=== PATIENT | male | born 1990 | race Caucasian/White ===

== ENCOUNTER → 2016-12-24 | Outpatient (CLI) | payer MEDICARE, MEDICAID ==
[~2016-12-24] MED LIST: BISA10SU4 PR; CIPR500T3 PO; CLAR1TAB2 PO; CRAN200C PO; FISH100049 PO; MACR25CA2 PO; NITR100C37 PO; OXYC-517 PO; PROBCAP4 PO; TRAM50TA2 PO; VITA-112 PO
[2016-12-24 18:02] LABS: INR 1.01
[2016-12-24 18:09] LABS: MEAN CORPUSCULAR HEMOGLOBIN 30.9 pg (27.0-33.0); MEAN CORPUSCULAR HGB CONC 33.9 g/dl (32.0-36.5); MEAN CORPUSCULAR VOLUME 91.1 fl (80.0-96.0); RED CELL DISTRIBUTION WIDTH 12.1 % (11.5-14.5); WHITE BLOOD COUNT 7.2 K/mm3 (4.0-10.0)
[2016-12-24 18:18] LABS: ANION GAP 7 MEQ/L (8-16); BLOOD UREA NITROGEN 12 MG/DL (7-18); CALCIUM LEVEL 9.1 MG/DL (8.5-10.1); CARBON DIOXIDE LEVEL 34 MEQ/L (21-32); CHLORIDE LEVEL 102 MEQ/L (98-107); CREATININE FOR GFR 0.74 MG/DL (0.70-1.30); GLOMERULAR FILTRATION RATE > 60.0 (>60); GLUCOSE, FASTING 72 MG/DL (70-105); POTASSIUM SERUM 4.1 MEQ/L (3.5-5.1); SODIUM LEVEL 143 MEQ/L (136-145)
== END ==
LOC: M SMT 15:25
PROVIDERS: ATTEND Nurse Practitioner Women's Health
DX: Z01.818 Encounter for other preprocedural examination (principal); N31.9 Neuromuscular dysfunction of bladder, unspecified; F17.228 Nicotine dependence, chewing tobacco, with other nicotine-induced disorders; Z79.899 Other long term (current) drug therapy; Z79.891 Long term (current) use of opiate analgesic
CPT/HCPCS: 36415; 80048; 85027; 85610; 85730; 87086; G0463

== ENCOUNTER → 2017-01-01 | Outpatient (REF) | payer MEDICARE, MEDICAID ==
[2017-01-01 18:37] LABS: ALBUMIN 3.9 GM/DL (3.2-5.2); ALBUMIN/GLOBULIN RATIO 1.34 (1.00-1.93); ALKALINE PHOSPHATASE 69 U/L (45-117); ALT/SGPT 25 U/L (12-78); ANION GAP 6 MEQ/L (8-16); AST/SGOT 13 U/L (15-37); BILIRUBIN,TOTAL 0.5 MG/DL (0.2-1.0); BLOOD UREA NITROGEN 10 MG/DL (7-18); CALCIUM LEVEL 8.8 MG/DL (8.5-10.1); CARBON DIOXIDE LEVEL 34 MEQ/L (21-32); CHLORIDE LEVEL 102 MEQ/L (98-107); CHOLESTEROL LEVEL 132 MG/DL (<200); CREATININE FOR GFR 0.81 MG/DL (0.70-1.30); GLOMERULAR FILTRATION RATE > 60.0 (>60); GLUCOSE, FASTING 71 MG/DL (70-105); SODIUM LEVEL 142 MEQ/L (136-145); TOTAL PROTEIN 6.8 GM/DL (6.4-8.2); TRIGLYCERIDES LEVEL 133 MG/DL (<150)
== END ==
LOC: M SFHCPLAZ 16:37
PROVIDERS: ATTEND Family Medicine
DX: B35.1 Tinea unguium (principal); B35.3 Tinea pedis; Z79.891 Long term (current) use of opiate analgesic; Z79.899 Other long term (current) drug therapy
CPT/HCPCS: 36415; 80053; 80061; G0463

== ENCOUNTER 2017-01-19 07:30 | Day surgery (SDC) | payer MEDICARE, MEDICAID ==
[~2017-01-19] VITALS: Ht 177.8 cm; Wt 73.9 kg
[~2017-01-19 07:30] MED LIST changes: +BOTULINUM INJ 100 UNITS (J0585) As Ordered ONE; +BOTULINUM INJ 100 UNITS (J0585) IM ONE; +BOTULINUM INJ 100 UNITS (J0585) INJ ONE; -CIPR500T3 PO; +CIPROFLOXACIN 500 MG TAB PO SCH; +LIDOCAINE 2% INJ 100 MG/5 ML SDV (FOR ANES.) As Ordered ONE; +LR 1,000 ML IV SCH; +MIDAZOLAM INJ 2 MG/2 ML VIAL (J2250) As Ordered ONE; +PROPOFOL 200 MG/20 ML VIAL As Ordered ONE; +fentaNYL 100 MCG/2 ML INJECTION (J3010) As Ordered ONE
[2017-01-19] MEDS ORDERED: GLYCOPYRROLATE INJ 0.2 MG/ML 2 ML VIAL As Ordered ONE (07:45)
[2017-01-19] MEDS ORDERED: CIPR500T3 PO (08:04)
[2017-01-19] MEDS ORDERED: ONDANSETRON 4MG/2ML VIAL (J2405) IV PRN (08:30)
[2017-01-19] MEDS ORDERED: NORCO, ANEXSIA 5/325MG TABLET (HYDROcodone/ACETAMINOPHEN) PO PRN (08:30)
[2017-01-19 09:15] VITALS: BP 125/57
--- NOTE | 2017-01-20 05:10 | RO ---
DATE OF PROCEDURE: 01/19/2017 PREOPERATIVE DIAGNOSIS: Neurogenic bladder. POSTOPERATIVE DIAGNOSIS: Neurogenic bladder. SURGERY PERFORMED: Cystoscopy, plus intravesical Botox injection 300 units. SURGEON: Jerry Herrera MD [employer] PR[employer] UTILITY WORKER: None. ANESTHESIA: General. COMPLICATIONS: None. ESTIMATED BLOOD LOSS: N/A. HISTORY OF PRESENT ILLNESS: This is a 26-year-old male patient with history of neurogenic bladder. He catheterizes every 6 hours. He has urinary incontinence between catheterization. For this reason, he has consented for a cystoscopy, plus Botox injection 300 units. PROCEDURE DESCRIPTION: In a patient in under general anesthesia in supine modified low lithotomy position after prepping and draping the area of concern, which included the entire genitalia and abdomen, we introduced a cystoscope with a 30 degree lens under video endoscopic guidance. The fossa navicularis, penile urethra, bulbar urethra, membranous urethra, and prostatic urethra were totally normal. The bladder had no tumor, no stones, no foreign objects. We could see both ureteral orifices very well. We passed a Laborie endoscopic needle and through this needle we applied 300 units of Botox injection. We applied 1 mL in every puncture of the bladder in the posterior bladder wall, the dome, left lateral wall, right lateral wall, and trigone. We spread the Botox injection 300 units all across the bladder. There were no complications. We took the needle out and we emptied bladder and took the cystoscope out. PLAN: The patient will go home with antibiotic, will take Tylenol for pain. He will followup at [facility] in about 3-4 weeks. STEPHIE
[2017-01-20] MEDS ORDERED: PERCOCET 5MG/325MG TAB As Ordered ONE (13:12)
== END 2017-01-19 15:30 | disposition home or self-care (01) ==
LOC: M SDC 07:30
PROVIDERS: ATTEND Urology
DX: N31.0 Uninhibited neuropathic bladder, not elsewhere classified (principal); R32 Unspecified urinary incontinence; S24.112A Complete lesion at T2-T6 level of thoracic spinal cord, initial encounter; Z99.3 Dependence on wheelchair; Z86.73 Personal history of transient ischemic attack (TIA), and cerebral infarction without residual deficits; Z79.899 Other long term (current) drug therapy; F17.220 Nicotine dependence, chewing tobacco, uncomplicated
CPT/HCPCS: 52287; J0585; J0690; J2250; J3010; L8606

== ENCOUNTER → 2017-05-07 | Outpatient (CLI) | payer MEDICARE, MEDICAID ==
[~2017-05-07] MED LIST changes: +BACT800T5 PO; -BOTULINUM INJ 100 UNITS (J0585) As Ordered ONE; -BOTULINUM INJ 100 UNITS (J0585) IM ONE; -BOTULINUM INJ 100 UNITS (J0585) INJ ONE; +CIPR500T3 PO; -CIPROFLOXACIN 500 MG TAB PO SCH; -LIDOCAINE 2% INJ 100 MG/5 ML SDV (FOR ANES.) As Ordered ONE; -LR 1,000 ML IV SCH; -MIDAZOLAM INJ 2 MG/2 ML VIAL (J2250) As Ordered ONE; -NITR100C37 PO; +NITR100C39 PO; +NITR50CA2 PO; +OXYC20TA2 PO; -PROPOFOL 200 MG/20 ML VIAL As Ordered ONE; -fentaNYL 100 MCG/2 ML INJECTION (J3010) As Ordered ONE
[2017-05-07 17:03] LABS: MEAN CORPUSCULAR HEMOGLOBIN 31.4 pg (27.0-33.0); MEAN CORPUSCULAR VOLUME 92.3 fl (80.0-96.0); RED CELL DISTRIBUTION WIDTH 12.2 % (11.5-14.5); WHITE BLOOD COUNT 8.8 K/mm3 (4.0-10.0)
[2017-05-07 17:14] LABS: INR 1.14
[2017-05-07 17:58] LABS: ANION GAP 5 MEQ/L (8-16); BLOOD UREA NITROGEN 10 MG/DL (7-18); CALCIUM LEVEL 8.9 MG/DL (8.5-10.1); CARBON DIOXIDE LEVEL 33 MEQ/L (21-32); CHLORIDE LEVEL 101 MEQ/L (98-107); CREATININE FOR GFR 0.81 MG/DL (0.70-1.30); GLOMERULAR FILTRATION RATE > 60.0 (>60); GLUCOSE, FASTING 68 MG/DL (70-105); POTASSIUM SERUM 4.3 MEQ/L (3.5-5.1); SODIUM LEVEL 139 MEQ/L (136-145)
== END ==
LOC: M SMT 15:36
PROVIDERS: ATTEND Nurse Practitioner Women's Health
DX: Z01.818 Encounter for other preprocedural examination (principal); N31.9 Neuromuscular dysfunction of bladder, unspecified; Z79.899 Other long term (current) drug therapy
CPT/HCPCS: 36415; 80048; 81001; 85027; 85610; 85730; 87086; G0463

== ENCOUNTER → 2017-06-02 | Day surgery (SDC) | payer MEDICARE, MEDICAID ==
[~2017-06-02] VITALS: Ht 177.8 cm; Wt 77.1 kg
[~2017-06-02] MED LIST changes: +BACTRIM 160MG/800MG DS TAB PO SCH; +BOTULINUM INJ 100 UNITS (J0585) As Ordered ONE; +BOTULINUM INJ 100 UNITS (J0585) XX ONE; +LIDOCAINE 2% INJ 100 MG/5 ML SDV (FOR ANES.) As Ordered ONE; +LR 1,000 ML IV ONE; +LR 1,000 ML IV SCH; +MIDAZOLAM INJ 2 MG/2 ML VIAL (J2250) As Ordered ONE; +ONDANSETRON 4MG/2ML VIAL (J2405) As Ordered ONE; +ONDANSETRON 4MG/2ML VIAL (J2405) IV PRN; +ceFAZolin 2 GM/D5W 50 ML IV BAG (J0690) As Ordered ONE; +dexameTHASONE 4 MG/ML 1ML VIAL (J1100) As Ordered ONE; +ePHEDrine SULFATE 25 MG/5 ML(5MG/ML) SYRINGE As Ordered ONE; +fentaNYL 100 MCG/2 ML INJECTION (J3010) As Ordered ONE; +fentaNYL 100 MCG/2 ML INJECTION (J3010) IV PRN
[2017-06-02 14:30] VITALS: BP 143/86
--- NOTE | 2017-06-03 09:30 | RO ---
DATE OF PROCEDURE: 06/02/2017 PREPROCEDURE DIAGNOSIS: Neurogenic bladder. POSTPROCEDURE DIAGNOSIS: Neurogenic bladder and urge incontinence. FINDINGS: Neurogenic bladder. SURGEON: Jerry Herrera MD CARE TEAM COORDINATOR SCHEDULER: None ANESTHESIA: General. COMPLICATIONS: None. ESTIMATED BLOOD LOSS: N/A. SURGERY PERFORMED: Cystoscopy plus injection of 300 units of Botox into the bladder. HISTORY OF PRESENT ILLNESS: This is a 26-year-old male patient that has a neurogenic bladder and catheterizes intermittently every six hours. Between catheterizations, he has urge incontinence. For this reason, he has been using Botox injections in the bladder. Today, he has consented for cystoscopy, plus 300 units of Botox into the bladder. DESCRIPTION OF PROCEDURE: With the patient under general anesthesia in supine, modified, low lithotomy position, after prepping had draping the area of concern , which included the entire genitalia and abdomen, we started by introducing a cystoscope with a 30 degree lens under videoendoscopic guidance, #21 [place] in diameter. The fossa navicularis, penile urethra, bulbar urethra, membranous urethra and prostatic urethra were completely normal. The bladder had no tumors , no stones, no foreign objects. Both ureteral orifices were seen excreting clear urine. We then proceeded to pass an endoscopic needle and using a 5 mm needle tip, we injected the solution of 10 mL of Botox 100 units. We placed 1 mL in every injection in the posterior wall, by 5 cm from each injection site in the bladder. The posterior wall, dome, right lateral wall. Another 100 units of Botox injection in 10 mL of normal saline was injected at 1 mL every 5 cm in the posterior wall, dome, and left lateral wall. We then proceeded to actually inject another 100 units of Botox injection in 10 mL using 1 mL in every site of injection in the posterior wall and all the spaces that were available between the injection sites, which we did on the right lateral wall, left lateral wall, anterior wall and dome. After this, he received a total of 300 units of Botox injection into the bladder. There was no bleeding. We emptied the bladder and took the cystoscope out. PLAN: The patient will go home with antibiotic, Bactrim double strength, one tablet by mouth twice a day. He will followup at [facility] in about 2 weeks. STEPHIE
== END | disposition home or self-care (01) ==
LOC: M SDC 09:47
PROVIDERS: ATTEND Urology
DX: N31.9 Neuromuscular dysfunction of bladder, unspecified (principal); N39.41 Urge incontinence; G82.20 Paraplegia, unspecified; S24.112S Complete lesion at T2-T6 level of thoracic spinal cord, sequela; I82.4Z9 Acute embolism and thrombosis of unspecified deep veins of unspecified distal lower extremity; M54.2 Cervicalgia; M25.511 Pain in right shoulder; M25.512 Pain in left shoulder; G89.29 Other chronic pain; F17.220 Nicotine dependence, chewing tobacco, uncomplicated; Z79.899 Other long term (current) drug therapy; Z99.3 Dependence on wheelchair
CPT/HCPCS: 52287; J0585; J0690; J1100; J2250; J2405; J3010; L8606

== ENCOUNTER → 2017-09-02 | Outpatient (CLI) | payer MEDICARE, MEDICAID ==
[~2017-09-02] MED LIST changes: -BACTRIM 160MG/800MG DS TAB PO SCH; -BOTULINUM INJ 100 UNITS (J0585) As Ordered ONE; -BOTULINUM INJ 100 UNITS (J0585) XX ONE; -LIDOCAINE 2% INJ 100 MG/5 ML SDV (FOR ANES.) As Ordered ONE; -LR 1,000 ML IV ONE; -LR 1,000 ML IV SCH; -MIDAZOLAM INJ 2 MG/2 ML VIAL (J2250) As Ordered ONE; -ONDANSETRON 4MG/2ML VIAL (J2405) As Ordered ONE; -ONDANSETRON 4MG/2ML VIAL (J2405) IV PRN; -ceFAZolin 2 GM/D5W 50 ML IV BAG (J0690) As Ordered ONE; -dexameTHASONE 4 MG/ML 1ML VIAL (J1100) As Ordered ONE; -ePHEDrine SULFATE 25 MG/5 ML(5MG/ML) SYRINGE As Ordered ONE; -fentaNYL 100 MCG/2 ML INJECTION (J3010) As Ordered ONE; -fentaNYL 100 MCG/2 ML INJECTION (J3010) IV PRN
[2017-09-02 18:33] LABS: ANION GAP 7 MEQ/L (8-16); BLOOD UREA NITROGEN 12 MG/DL (7-18); CARBON DIOXIDE LEVEL 33 MEQ/L (21-32); CHLORIDE LEVEL 101 MEQ/L (98-107); GLOMERULAR FILTRATION RATE > 60.0 (>60); GLUCOSE, FASTING 70 MG/DL (70-105); POTASSIUM SERUM 4.1 MEQ/L (3.5-5.1); SODIUM LEVEL 141 MEQ/L (136-145)
[2017-09-02 18:45] LABS: MEAN CORPUSCULAR HEMOGLOBIN 30.7 pg (27.0-33.0); MEAN CORPUSCULAR HGB CONC 32.9 g/dl (32.0-36.5); MEAN CORPUSCULAR VOLUME 93.1 fl (80.0-96.0); WHITE BLOOD COUNT 7.1 10^3/uL (4.0-10.0)
[2017-09-02 18:55] LABS: INR 1.03
== END ==
LOC: M SMT 15:55
PROVIDERS: ATTEND Nurse Practitioner Women's Health
DX: Z01.818 Encounter for other preprocedural examination (principal); N31.9 Neuromuscular dysfunction of bladder, unspecified; R32 Unspecified urinary incontinence; Z79.891 Long term (current) use of opiate analgesic; Z79.899 Other long term (current) drug therapy
CPT/HCPCS: 36415; 51702; 80048; 81001; 85027; 85610; 85730; 87086; G0463

== ENCOUNTER → 2018-02-11 | Outpatient (REF) | payer MEDICARE, MEDICAID ==
[2018-02-11 13:00] LABS: APPEARANCE, URINE CLEAR (CLEAR); BACTERIA, URINE AUTO NEGATIVE (NEGATIVE); BILIRUBIN, URINE AUTO NEGATIVE (NEGATIVE); BLOOD, URINE BLOOD NEGATIVE (NEGATIVE); COLOR, URINE STRAW (YELLOW); GLUCOSE, URINE (UA) AUTO NEGATIVE (NEGATIVE); KETONE, URINE AUTO NEGATIVE (NEGATIVE); LEUKOCYTE ESTERASE, URINE AUTO NEGATIVE (NEGATIVE); NITRITE, URINE AUTO NEGATIVE (NEGATIVE); PROTEIN, URINE AUTO NEGATIVE (NEGATIVE); RBC, URINE AUTO 1 /HPF (0-3); SPECIFIC GRAVITY URINE AUTO 1.005 (1.002-1.035); SQUAMOUS EPITHELIAL CELL UR AU 0 /HPF (0-6); UROBILINOGEN, URINE AUTO 0.2 mg/dL (0.0-2.0); WBC, URINE AUTO 0 /HPF (0-3)
== END ==
LOC: M SMT 12:21
DX: Z01.818 Encounter for other preprocedural examination (principal); N31.9 Neuromuscular dysfunction of bladder, unspecified; Z79.899 Other long term (current) drug therapy
CPT/HCPCS: 81001

== ENCOUNTER → 2018-02-11 | Outpatient (CLI) | payer MEDICARE, MEDICAID ==
[2018-02-11 12:27] LABS: HEMATOCRIT 41.3 % (42.0-52.0); HEMOGLOBIN 13.5 g/dl (14.0-18.0); MEAN CORPUSCULAR HEMOGLOBIN 30.3 pg (27.0-33.0); MEAN CORPUSCULAR HGB CONC 32.7 g/dl (32.0-36.5); MEAN CORPUSCULAR VOLUME 92.6 fl (80.0-96.0); PLATELET COUNT, AUTOMATED 256 10^3/uL (150-450); RED BLOOD COUNT 4.46 10^6/uL (4.30-6.10); RED CELL DISTRIBUTION WIDTH 12.5 % (11.5-14.5); WHITE BLOOD COUNT 4.9 10^3/uL (4.0-10.0)
[2018-02-11 12:43] LABS: ANION GAP 5 MEQ/L (8-16); BLOOD UREA NITROGEN 8 MG/DL (7-18); CALCIUM LEVEL 8.8 MG/DL (8.5-10.1); CARBON DIOXIDE LEVEL 33 MEQ/L (21-32); CHLORIDE LEVEL 104 MEQ/L (98-107); CREATININE FOR GFR 0.63 MG/DL (0.70-1.30); GLOMERULAR FILTRATION RATE > 60.0 (>60); GLUCOSE, FASTING 78 MG/DL (70-100); POTASSIUM SERUM 4.2 MEQ/L (3.5-5.1); SODIUM LEVEL 142 MEQ/L (136-145)
[2018-02-11 12:48] LABS: INR 1.04; PROTHROMBIN TIME 13.7 SECONDS (12.4-14.5)
[2018-02-11 12:49] LABS: PARTIAL THROMBOPLASTIN TIME 26.6 SECONDS (26.8-37.9)
== END ==
LOC: M SMT 09:18
DX: Z01.818 Encounter for other preprocedural examination (principal); N31.9 Neuromuscular dysfunction of bladder, unspecified
CPT/HCPCS: 80048

== ENCOUNTER 2018-02-22 12:17 | Day surgery (SDC) | payer MEDICARE, MEDICAID ==
[~2018-02-22 12:17] MED LIST changes: -BACT800T5 PO; -BISA10SU4 PR; -CIPR500T3 PO; -CLAR1TAB2 PO; -CRAN200C PO; -FISH100049 PO; +LIDOCAINE 2% INJ 100 MG/5 ML SDV (FOR ANES.) As Ordered; -MACR25CA2 PO; +MIDAZOLAM INJ 2 MG/2 ML VIAL (J2250) As Ordered; -NITR100C39 PO; -NITR50CA2 PO; -OXYC-517 PO; -OXYC20TA2 PO; -PROBCAP4 PO; +PROPOFOL 200 MG/20 ML VIAL As Ordered; -TRAM50TA2 PO; -VITA-112 PO; +fentaNYL 100 MCG/2 ML INJECTION (J3010) As Ordered
[2018-02-22] MEDS: LR 1,000 ML IV (13:19)
[2018-02-22] MEDS ORDERED: ePHEDrine SULFATE 25 MG/5 ML(5MG/ML) SYRINGE As Ordered (14:29)
[2018-02-22] MEDS ORDERED: ONDANSETRON 4MG/2ML VIAL (J2405) As Ordered (14:30)
[2018-02-22] MEDS ORDERED: dexameTHASONE 4 MG/ML 1ML VIAL (J1100) As Ordered (14:30)
[2018-02-22] MEDS: BOTULINUM INJ 100 UNITS (J0585) As Ordered (14:38)
[2018-02-22] MEDS ORDERED: LR 1,000 ML IV (15:15)
== END 2018-02-22 16:05 | disposition home or self-care (01) ==
LOC: M SDC 12:17
DX: N31.9 Neuromuscular dysfunction of bladder, unspecified (principal); R32 Unspecified urinary incontinence; G82.20 Paraplegia, unspecified; Z79.899 Other long term (current) drug therapy; Z99.3 Dependence on wheelchair; F17.220 Nicotine dependence, chewing tobacco, uncomplicated; Z86.718 Personal history of other venous thrombosis and embolism
CPT/HCPCS: 52287

== ENCOUNTER → 2018-03-04 | Outpatient (REF) | payer MEDICARE, MEDICAID ==
[2018-03-10 08:09] LABS: AMPHETAMINE SCREEN, URINE Negative ng/mL (Cutoff=1000); BARBITURATES SCREEN, URINE Negative ng/mL (Cutoff=200); BENZODIAZEPINES, URINE SCREEN Negative ng/mL (Cutoff=200); CANNABINOID SCREEN, URINE Negative ng/mL (Cutoff=20); COCAINE SCREEN, URINE Negative ng/mL (Cutoff=300); METHADONE, URINE SCREEN Negative ng/mL (Cutoff=300); OPIATE SCREEN, URINE Negative ng/mL (Cutoff=300); OXYCODONE URINE Positive (.); OXYCODONE, SCREEN, URINE See Final Results ng/mL (Cutoff=100); OXYCODONE, URINE CONFIRM 1280 ng/mL (Cutoff=100); OXYCODONE/OXYMORPH, URINE Positive (Cutoff=100); OXYMORPHONE, URINE Positive (.); OXYMORPHONE, URINE CONFIRM 1060 ng/mL (Cutoff=100); PCP SCREEN, URINE Negative ng/mL (Cutoff=25); pH, URINE 6.5 (4.5-8.9)
== END ==
LOC: M SFHCPLAZ 17:09
DX: G89.21 Chronic pain due to trauma (principal); Z79.899 Other long term (current) drug therapy
CPT/HCPCS: 80307

== ENCOUNTER 2018-03-30 10:36 | Outpatient (CLI) | payer MEDICARE, MEDICAID ==
[2018-03-30] MEDS: ZOLEDRONIC ACID 5 MG in APPROPRIATE DILUENT 1 EA IV (11:03)
[2018-03-30 11:58] LABS: TOTAL 25(OH) VITAMIN D 37.6 NG/ML (30.0-100.0)
== END 2018-03-30 11:50 | disposition home or self-care (01) ==
LOC: M INFU 10:36
DX: M81.8 Other osteoporosis without current pathological fracture (principal); F32.9 Major depressive disorder, single episode, unspecified; R32 Unspecified urinary incontinence; N20.0 Calculus of kidney; F17.220 Nicotine dependence, chewing tobacco, uncomplicated; Z79.891 Long term (current) use of opiate analgesic; Z79.899 Other long term (current) drug therapy
CPT/HCPCS: J3489

== ENCOUNTER 2018-09-23 06:56 | Day surgery (SDC) | payer MEDICARE, MEDICAID ==
[2018-09-23] MEDS ORDERED: NS 1,000 ML IV (07:30)
[2018-09-23] MEDS ORDERED: PROPOFOL 200 MG/20 ML VIAL As Ordered ×2 (07:46)
[2018-09-23] MEDS ORDERED: LIDOCAINE 2% INJ 100 MG/5 ML SDV (FOR ANES.) As Ordered (07:46)
[2018-09-23] MEDS ORDERED: ePHEDrine SULFATE 25 MG/5 ML(5MG/ML) SYRINGE As Ordered (07:47)
== END 2018-09-23 08:40 | disposition home or self-care (01) ==
LOC: M OPP 06:56
DX: K64.8 Other hemorrhoids (principal); K62.1 Rectal polyp; K92.1 Melena; I95.1 Orthostatic hypotension; N31.9 Neuromuscular dysfunction of bladder, unspecified; G89.29 Other chronic pain; G82.20 Paraplegia, unspecified; Z79.891 Long term (current) use of opiate analgesic; Z79.899 Other long term (current) drug therapy; Z99.3 Dependence on wheelchair; Z86.718 Personal history of other venous thrombosis and embolism; F17.220 Nicotine dependence, chewing tobacco, uncomplicated
CPT/HCPCS: 45380

== ENCOUNTER → 2018-10-28 | Outpatient (REF) | payer MEDICARE, MEDICAID ==
[2018-10-28 14:06] LABS: APPEARANCE, URINE CLEAR (CLEAR); BACTERIA, URINE AUTO NEGATIVE (NEGATIVE); BILIRUBIN, URINE AUTO NEGATIVE (NEGATIVE); BLOOD, URINE BLOOD NEGATIVE (NEGATIVE); COLOR, URINE YELLOW (YELLOW); GLUCOSE, URINE (UA) AUTO NEGATIVE (NEGATIVE); KETONE, URINE AUTO NEGATIVE (NEGATIVE); LEUKOCYTE ESTERASE, URINE AUTO NEGATIVE (NEGATIVE); NITRITE, URINE AUTO NEGATIVE (NEGATIVE); PROTEIN, URINE AUTO NEGATIVE (NEGATIVE); RBC, URINE AUTO 0 /HPF (0-3); SPECIFIC GRAVITY URINE AUTO 1.009 (1.002-1.035); SQUAMOUS EPITHELIAL CELL UR AU 1 /HPF (0-6); UROBILINOGEN, URINE AUTO 0.2 mg/dL (0.0-2.0); WBC, URINE AUTO 1 /HPF (0-3)
== END ==
LOC: M SMT 13:03
DX: N31.9 Neuromuscular dysfunction of bladder, unspecified (principal); R32 Unspecified urinary incontinence
CPT/HCPCS: 81001

== ENCOUNTER → 2018-12-09 | Outpatient (CLI) | payer MEDICARE, MEDICAID ==
[~2018-12-09] MED LIST changes: +BACT800T5 PO; +BISA10SU4 PR; +CIPR500T3 PO; +CLAR1TAB2 PO; +CRAN200C PO; +D-MAPOW4 PO; +FISH100049 PO; +LEVI20TA39 PO; -LIDOCAINE 2% INJ 100 MG/5 ML SDV (FOR ANES.) As Ordered; +MACR25CA2 PO; -MIDAZOLAM INJ 2 MG/2 ML VIAL (J2250) As Ordered; +NITR100C39 PO; +NITR50CA34 PO; +NYST1POW9 TOP; +NYSTOI TOP; +OXYC-517 PO; +OXYC20TA2 PO; +PROBCAP4 PO; -PROPOFOL 200 MG/20 ML VIAL As Ordered; +TRAM50TA2 PO; +VITA-112 PO; -fentaNYL 100 MCG/2 ML INJECTION (J3010) As Ordered
[2018-12-09 17:40] LABS: HEMATOCRIT 46.2 % (42.0-52.0); HEMOGLOBIN 15.1 g/dl (13.5-17.5); MEAN CORPUSCULAR HEMOGLOBIN 30.3 pg (27.0-33.0); MEAN CORPUSCULAR HGB CONC 32.7 g/dl (32.0-36.5); MEAN CORPUSCULAR VOLUME 92.8 fl (80.0-96.0); PLATELET COUNT, AUTOMATED 251 10^3/uL (150-450); RED BLOOD COUNT 4.98 10^6/uL (4.30-6.10); WHITE BLOOD COUNT 6.2 10^3/uL (4.0-10.0)
[2018-12-09 17:42] LABS: BLOOD UREA NITROGEN 10 MG/DL (7-18); CALCIUM LEVEL 9.1 MG/DL (8.5-10.1); CARBON DIOXIDE LEVEL 33 MEQ/L (21-32); CHLORIDE LEVEL 102 MEQ/L (98-107); CREATININE FOR GFR 0.68 MG/DL (0.70-1.30); GLOMERULAR FILTRATION RATE > 60.0 (>60); GLUCOSE, FASTING 119 MG/DL (70-100); POTASSIUM SERUM 4.1 MEQ/L (3.5-5.1); SODIUM LEVEL 141 MEQ/L (136-145)
[2018-12-09 17:50] LABS: INR 1.02; PROTHROMBIN TIME 13.5 SECONDS (12.1-14.4)
[2018-12-09 17:51] LABS: PARTIAL THROMBOPLASTIN TIME 25.9 SECONDS (25.4-37.6)
[2018-12-09 18:00] LABS: APPEARANCE, URINE CLEAR (CLEAR); BACTERIA, URINE AUTO NEGATIVE (NEGATIVE); BILIRUBIN, URINE AUTO NEGATIVE (NEGATIVE); BLOOD, URINE BLOOD NEGATIVE (NEGATIVE); COLOR, URINE STRAW (YELLOW); GLUCOSE, URINE (UA) AUTO NEGATIVE (NEGATIVE); KETONE, URINE AUTO NEGATIVE (NEGATIVE); LEUKOCYTE ESTERASE, URINE AUTO NEGATIVE (NEGATIVE); NITRITE, URINE AUTO NEGATIVE (NEGATIVE); PROTEIN, URINE AUTO NEGATIVE (NEGATIVE); RBC, URINE AUTO 0 /HPF (0-3); SPECIFIC GRAVITY URINE AUTO 1.004 (1.002-1.035); SQUAMOUS EPITHELIAL CELL UR AU 0 /HPF (0-6); UROBILINOGEN, URINE AUTO 0.2 mg/dL (0.0-2.0); WBC, URINE AUTO 1 /HPF (0-3)
== END ==
LOC: M SMT 15:05
PROVIDERS: ATTEND Nurse Practitioner Women's Health
DX: N31.9 Neuromuscular dysfunction of bladder, unspecified (principal); R32 Unspecified urinary incontinence

== ENCOUNTER 2018-12-14 08:45 | Day surgery (SDC) | payer MEDICARE, MEDICAID ==
[~2018-12-14] VITALS: Ht 177.8 cm; Wt 73.9 kg
[~2018-12-14 08:45] MED LIST changes: +LIDOCAINE 1% MDV 20ML VIAL SQ PRN; +LR 1,000 ML IV ONE
[2018-12-14] MEDS ORDERED: dexameTHASONE 4 MG/ML 1ML VIAL (J1100) As Ordered ONE (10:17)
[2018-12-14] MEDS ORDERED: LIDOCAINE 2% INJ 100 MG/5 ML SDV (FOR ANES.) As Ordered ONE (10:17)
[2018-12-14] MEDS ORDERED: PROPOFOL 200 MG/20 ML VIAL As Ordered ONE (10:17)
[2018-12-14] MEDS ORDERED: fentaNYL 100 MCG/2 ML INJECTION (J3010) As Ordered ONE (10:17)
[2018-12-14] MEDS ORDERED: ONDANSETRON 4MG/2ML VIAL (J2405) As Ordered ONE (10:17)
[2018-12-14] MEDS ORDERED: MIDAZOLAM INJ 2 MG/2 ML VIAL (J2250) As Ordered ONE (10:18)
[2018-12-14] MEDS ORDERED: BOTULINUM INJ 100 UNITS (J0585) As Ordered ONE (13:51)
[2018-12-14] MEDS ORDERED: ACETAMINOPHEN TAB 650MG DOSE (2X325MG) PO PRN (16:00)
[2018-12-14] MEDS ORDERED: fentaNYL 100 MCG/2 ML INJECTION (J3010) IV PRN (16:00)
[2018-12-14] MEDS ORDERED: ONDANSETRON 4MG/2ML VIAL (J2405) IV PRN (16:00)
[2018-12-14] MEDS ORDERED: PERCOCET 5MG/325MG TAB PO PRN (16:00)
[2018-12-14] MEDS ORDERED: LR 1,000 ML IV SCH (16:00)
[2018-12-14 16:20] VITALS: BP 116/58
--- NOTE | 2018-12-15 10:42 | RO ---
DATE OF PROCEDURE: 12/14/2018 PREPROCEDURE DIAGNOSIS: Neurogenic bladder, urinary incontinence. POSTPROCEDURE DIAGNOSIS: Neurogenic bladder, urinary incontinence. PROCEDURE: Cystoscopy, bladder Botox injections. SURGEON: Dr. Brian Mccracken MANAGING SUPERVISOR: None. ANESTHESIA: General. OPERATIVE INDICATIONS: This is a 28-year-old male with a neurogenic bladder who has several episodes of urge incontinence a day. He was brought to the operating room today for the above listed procedures. DESCRIPTION OF PROCEDURE: The patient was brought to the operating room where general anesthesia was induced. Prophylactic antibiotics were infused. He was then placed in dorsal lithotomy position and prepped and draped in the usual sterile fashion. A cystoscope was inserted into the urethral meatus and advanced to the bladder. Once inside the bladder, it was examined and no abnormalities were seen. I then proceeded to inject a total of 300 units in 20 mL of injectable saline throughout the bladder. This was done in approximately 30 different locations. I made sure not to inject anywhere close to the ureteral orifices. Once done, the bladder was drained of all fluids and this marked the conclusion of the procedure. The patient was then taken out of dorsal lithotomy position, awakened from anesthesia and transferred to recovery room in stable condition. Estimated blood loss: 5 mL. Complications: None. Specimen: None. Plan: The patient will followup in the clinic in a few weeks for a postoperative visit.
== END 2018-12-14 16:30 | disposition home or self-care (01) ==
LOC: M SDC 08:45
PROVIDERS: ATTEND Urology
DX: N31.9 Neuromuscular dysfunction of bladder, unspecified (principal); R32 Unspecified urinary incontinence; J30.89 Other allergic rhinitis; I95.81 Postprocedural hypotension; M54.2 Cervicalgia; G89.29 Other chronic pain; G82.20 Paraplegia, unspecified; Z79.899 Other long term (current) drug therapy; Z72.0 Tobacco use; Z99.3 Dependence on wheelchair; Z87.81 Personal history of (healed) traumatic fracture
CPT/HCPCS: 52287; J0585; J0690; J1100; J2250; J2405; J3010

== ENCOUNTER → 2019-06-16 | Outpatient (REF) | payer MEDICARE, MEDICAID ==
[~2019-06-16] MED LIST changes: -LIDOCAINE 1% MDV 20ML VIAL SQ PRN; -LR 1,000 ML IV ONE; +MYRB50TA PO; +NITR50CA40 PO
[2019-06-16 13:24] LABS: APPEARANCE, URINE CLEAR (CLEAR); BACTERIA, URINE AUTO NEGATIVE (NEGATIVE); BILIRUBIN, URINE AUTO NEGATIVE (NEGATIVE); BLOOD, URINE BLOOD NEGATIVE (NEGATIVE); COLOR, URINE STRAW (YELLOW); GLUCOSE, URINE (UA) AUTO NEGATIVE (NEGATIVE); KETONE, URINE AUTO NEGATIVE (NEGATIVE); LEUKOCYTE ESTERASE, URINE AUTO TRACE (NEGATIVE); NITRITE, URINE AUTO NEGATIVE (NEGATIVE); PROTEIN, URINE AUTO NEGATIVE (NEGATIVE); RBC, URINE AUTO 1 /HPF (0-3); SPECIFIC GRAVITY URINE AUTO 1.006 (1.002-1.035); SQUAMOUS EPITHELIAL CELL UR AU 0 /HPF (0-6); UROBILINOGEN, URINE AUTO 0.2 mg/dL (0.0-2.0); WBC, URINE AUTO 1 /HPF (0-3)
== END ==
LOC: M SMT 12:50
PROVIDERS: ATTEND Nurse Practitioner Women's Health
DX: Z01.818 Encounter for other preprocedural examination (principal); N31.9 Neuromuscular dysfunction of bladder, unspecified

== ENCOUNTER → 2019-06-16 | Outpatient (CLI) | payer MEDICARE, MEDICAID ==
[2019-06-16 13:26] LABS: HEMATOCRIT 43.8 % (42.0-52.0); HEMOGLOBIN 14.5 g/dl (13.5-17.5); MEAN CORPUSCULAR HEMOGLOBIN 31.2 pg (27.0-33.0); MEAN CORPUSCULAR HGB CONC 33.1 g/dl (32.0-36.5); MEAN CORPUSCULAR VOLUME 94.2 fl (80.0-96.0); PLATELET COUNT, AUTOMATED 224 10^3/uL (150-450); RED BLOOD COUNT 4.65 10^6/uL (4.30-6.10); WHITE BLOOD COUNT 6.7 10^3/uL (4.0-10.0)
[2019-06-16 13:45] LABS: BLOOD UREA NITROGEN 9 MG/DL (7-18); CALCIUM LEVEL 9.1 MG/DL (8.5-10.1); CARBON DIOXIDE LEVEL 32 MEQ/L (21-32); CHLORIDE LEVEL 103 MEQ/L (98-107); CREATININE FOR GFR 0.67 MG/DL (0.70-1.30); GLOMERULAR FILTRATION RATE > 60.0 (>60); GLUCOSE, FASTING 87 MG/DL (70-100); INR 1.01; POTASSIUM SERUM 4.1 MEQ/L (3.5-5.1); SODIUM LEVEL 141 MEQ/L (136-145)
== END ==
LOC: M SMT 10:29
PROVIDERS: ATTEND Nurse Practitioner Women's Health
DX: Z01.818 Encounter for other preprocedural examination (principal); N31.9 Neuromuscular dysfunction of bladder, unspecified

== ENCOUNTER 2019-06-21 06:00 | Day surgery (SDC) | payer MEDICARE, MEDICAID ==
[~2019-06-21] VITALS: Ht 177.8 cm; Wt 73.9 kg
[~2019-06-21 06:00] MED LIST changes: +LIDOCAINE 1% MDV 20ML VIAL SQ PRN
[2019-06-21] MEDS ORDERED: BOTULINUM INJ 100 UNITS (J0585) INJ ONE (06:15)
[2019-06-21] MEDS ORDERED: LR 1,000 ML IV ONE (07:00)
[2019-06-21] MEDS ORDERED: LIDOCAINE 2% INJ 100 MG/5 ML SDV (FOR ANES.) As Ordered ONE (07:00)
[2019-06-21] MEDS ORDERED: PROPOFOL 200 MG/20 ML VIAL As Ordered ONE (07:00)
[2019-06-21] MEDS ORDERED: LevoFLOXacin IV 500 MG in APPROPRIATE DILUENT 1 EA IV ONE (07:00)
[2019-06-21] MEDS ORDERED: dexameTHASONE 4 MG/ML 1ML VIAL (J1100) As Ordered ONE (07:01)
[2019-06-21] MEDS ORDERED: ONDANSETRON 4MG/2ML VIAL (J2405) As Ordered ONE (07:01)
[2019-06-21] MEDS ORDERED: MIDAZOLAM INJ 2 MG/2 ML VIAL (J2250) As Ordered ONE (07:02)
[2019-06-21] MEDS ORDERED: fentaNYL 100 MCG/2 ML INJECTION (J3010) As Ordered ONE (07:02)
[2019-06-21] MEDS ORDERED: BOTULINUM INJ 100 UNITS (J0585) As Ordered ONE (07:16)
--- NOTE | 2019-06-21 08:00 | ROOPDOC ---
[facility] Report Of Operation Report of Operation DATE OF PROCEDURE: 06/21/19 PREPROCEDURE DIAGNOSIS: Neurogenic bladder, urinary incontinence. POSTPROCEDURE DIAGNOSIS: Neurogenic bladder, urinary incontinence. PROCEDURE: Cystoscopy, bladder Botox injections. SURGEON: Dr. Koffi Jimenez BARIATRIC COORDINATOR: None. ANESTHESIA: General. OPERATIVE INDICATIONS: This is a 28-year-old male with a neurogenic bladder who has several episodes of urge incontinence a day. He was brought to the operating room today for the above listed procedures. DESCRIPTION OF PROCEDURE: The patient was brought to the operating room where general anesthesia was induced. Prophylactic antibiotics were infused. He was then placed in dorsal lithotomy position and prepped and draped in the usual sterile fashion. A rigid cystoscope was inserted into the urethral meatus and advanced into the bladder. Once inside the bladder, it was examined and no abnormalities were seen. I then proceeded to inject a total of 300 units in 20 mL of injectable saline throughout the bladder. This was done in approximately 30 different locations. I made sure not to inject close to the ureteral orifices. Once done, the bladder was drained of all fluids and this marked the conclusion of the procedure. The patient was then taken out of dorsal lithotomy position, awakened from anesthesia and transferred to recovery room in stable condition. Estimated blood loss: 5 mL. Complications: None. Specimen: None. Plan: The patient will followup in the clinic in a few weeks for a postoperative visit. KOFFI JIMENEZ MD Jun 21, 2019 08:00
[2019-06-21] MEDS ORDERED: ONDANSETRON 4MG/2ML VIAL (J2405) IV PRN (08:30)
[2019-06-21] MEDS ORDERED: oxyCODONE 5MG TAB PO PRN (08:30)
[2019-06-21] MEDS ORDERED: ACETAMINOPHEN TAB 650MG DOSE (2X325MG) PO PRN (08:30)
[2019-06-21] MEDS ORDERED: fentaNYL 100 MCG/2 ML INJECTION (J3010) IV PRN (08:30)
[2019-06-21] MEDS ORDERED: LR 1,000 ML IV SCH (08:30)
[2019-06-21 08:43] VITALS: BP 122/70
== END 2019-06-21 08:56 | disposition home or self-care (01) ==
LOC: M SDC 06:00
PROVIDERS: ATTEND Urology
DX: N31.9 Neuromuscular dysfunction of bladder, unspecified (principal); N39.41 Urge incontinence; G82.20 Paraplegia, unspecified; F17.220 Nicotine dependence, chewing tobacco, uncomplicated; Z79.899 Other long term (current) drug therapy; Z99.3 Dependence on wheelchair
CPT/HCPCS: 52287; J0585; J1100; J1956; J2250; J2405; J3010

== ENCOUNTER → 2019-06-30 | Outpatient (REF) | payer MEDICARE, MEDICAID ==
[~2019-06-30] MED LIST changes: -LIDOCAINE 1% MDV 20ML VIAL SQ PRN
== END ==
LOC: M SMT 12:53
PROVIDERS: ATTEND Nurse Practitioner Women's Health
DX: N31.9 Neuromuscular dysfunction of bladder, unspecified (principal); N39.0 Urinary tract infection, site not specified
CPT/HCPCS: 51701; 87086; G0463

== ENCOUNTER → 2019-10-25 | Outpatient (CLI) | payer MEDICARE, MEDICAID ==
[~2019-10-25] MED LIST changes: +CVS1CAP2 PO; +FISH1000 PO; +LORA-436 PO; +NITR1CAP27 PO; -NITR50CA40 PO
[2019-10-25 13:22] LABS: HEMATOCRIT 44.8 % (42.0-52.0); HEMOGLOBIN 14.5 g/dl (13.5-17.5); MEAN CORPUSCULAR HEMOGLOBIN 30.7 pg (27.0-33.0); MEAN CORPUSCULAR HGB CONC 32.4 g/dl (32.0-36.5); MEAN CORPUSCULAR VOLUME 94.9 fl (80.0-96.0); PLATELET COUNT, AUTOMATED 244 10^3/uL (150-450); RED BLOOD COUNT 4.72 10^6/uL (4.30-6.10); WHITE BLOOD COUNT 5.7 10^3/uL (4.0-10.0)
[2019-10-25 13:24] LABS: BLOOD UREA NITROGEN 13 MG/DL (7-18); CALCIUM LEVEL 8.8 MG/DL (8.5-10.1); CARBON DIOXIDE LEVEL 33 MEQ/L (21-32); CHLORIDE LEVEL 105 MEQ/L (98-107); CREATININE FOR GFR 0.76 MG/DL (0.70-1.30); GLOMERULAR FILTRATION RATE > 60.0 (>60); GLUCOSE, FASTING 84 MG/DL (70-100); POTASSIUM SERUM 3.9 MEQ/L (3.5-5.1); SODIUM LEVEL 141 MEQ/L (136-145)
[2019-10-25 13:37] LABS: APPEARANCE, URINE CLEAR (CLEAR); BACTERIA, URINE AUTO NEGATIVE (NEGATIVE); BILIRUBIN, URINE AUTO NEGATIVE (NEGATIVE); BLOOD, URINE BLOOD NEGATIVE (NEGATIVE); COLOR, URINE YELLOW (YELLOW); GLUCOSE, URINE (UA) AUTO NEGATIVE (NEGATIVE); KETONE, URINE AUTO NEGATIVE (NEGATIVE); LEUKOCYTE ESTERASE, URINE AUTO 1+ (NEGATIVE); NITRITE, URINE AUTO NEGATIVE (NEGATIVE); PROTEIN, URINE AUTO NEGATIVE (NEGATIVE); RBC, URINE AUTO 0 /HPF (0-3); SPECIFIC GRAVITY URINE AUTO 1.011 (1.002-1.035); SQUAMOUS EPITHELIAL CELL UR AU 0 /HPF (0-6); UROBILINOGEN, URINE AUTO 0.2 mg/dL (0.0-2.0); WBC, URINE AUTO 6 /HPF (0-3)
[2019-10-25 13:48] LABS: INR 1.07; PARTIAL THROMBOPLASTIN TIME 26.1 SECONDS (25.0-38.4); PROTHROMBIN TIME 13.6 SECONDS (11.8-14.0)
== END ==
LOC: M PLALAB 10:52
PROVIDERS: ATTEND Nurse Practitioner Women's Health
DX: Z01.812 Encounter for preprocedural laboratory examination (principal); N31.9 Neuromuscular dysfunction of bladder, unspecified; G89.21 Chronic pain due to trauma; Z79.899 Other long term (current) drug therapy

== ENCOUNTER → 2019-10-25 | Outpatient (CLI) | payer MEDICARE, MEDICAID ==
[2019-10-25 13:36] LABS: ALBUMIN 3.5 GM/DL (3.2-5.2); ALT/SGPT 49 U/L (12-78); BILIRUBIN,TOTAL 0.3 MG/DL (0.2-1.0); BLOOD UREA NITROGEN 13 MG/DL (7-18); CALCIUM LEVEL 8.8 MG/DL (8.5-10.1); CARBON DIOXIDE LEVEL 34 MEQ/L (21-32); CHLORIDE LEVEL 102 MEQ/L (98-107); CHOLESTEROL LEVEL 185 MG/DL (<200); CREATININE FOR GFR 0.78 MG/DL (0.70-1.30); GLOMERULAR FILTRATION RATE > 60.0 (>60); GLUCOSE, FASTING 83 MG/DL (70-100); HDL CHOLESTEROL 50 MG/DL (>40); LDL CHOLESTEROL 106 MG/DL (<100); NON-HDL-C 135 MG/DL; POTASSIUM SERUM 3.8 MEQ/L (3.5-5.1); SODIUM LEVEL 141 MEQ/L (136-145); TOTAL PROTEIN 6.6 GM/DL (6.4-8.2); TRIGLYCERIDES LEVEL 147 MG/DL (<150)
[2019-10-25 13:59] LABS: TOTAL 25(OH) VITAMIN D 30.1 NG/ML (30.0-100.0)
[2019-10-28 00:07] LABS: TESTOSTERONE FREE (DIRECT) 9.7 pg/mL (8.7-25.1)
== END ==
LOC: M PLALAB 10:56
PROVIDERS: ATTEND Family Medicine
DX: M81.8 Other osteoporosis without current pathological fracture (principal); R53.82 Chronic fatigue, unspecified; G89.21 Chronic pain due to trauma; E78.1 Pure hyperglyceridemia; E78.6 Lipoprotein deficiency

== ENCOUNTER 2019-11-02 09:08 | Day surgery (SDC) | payer MEDICARE, MEDICAID ==
[~2019-11-02] VITALS: Ht 177.8 cm; Wt 74.8 kg
[~2019-11-02 09:08] MED LIST changes: +LR 1,000 ML IV ONE; +ceFAZolin SOD 2 GM in IV 1 EA IV ONE
[2019-11-02] MEDS ORDERED: ONDANSETRON 4MG/2ML VIAL (J2405) As Ordered ONE (09:14)
[2019-11-02] MEDS ORDERED: PROPOFOL 200 MG/20 ML VIAL As Ordered ONE (09:14)
[2019-11-02] MEDS ORDERED: dexameTHASONE 4 MG/ML 1ML VIAL (J1100) As Ordered ONE (09:14)
[2019-11-02] MEDS ORDERED: LIDOCAINE 2% INJ 100 MG/5 ML SDV (FOR ANES.) As Ordered ONE (09:14)
[2019-11-02] MEDS ORDERED: PROPOFOL 500 MG/50 ML VIAL As Ordered ONE (09:31)
[2019-11-02] MEDS ORDERED: MIDAZOLAM INJ 2 MG/2 ML VIAL (J2250) As Ordered ONE (09:47)
[2019-11-02] MEDS ORDERED: fentaNYL 100 MCG/2 ML INJECTION (J3010) As Ordered ONE (09:47)
[2019-11-02] MEDS ORDERED: BOTULINUM INJ 100 UNITS (J0585) As Ordered ONE (09:49)
[2019-11-02] MEDS ORDERED: LIDOCAINE 2% 5ML JELLY UROJET As Ordered ONE (09:49)
--- NOTE | 2019-11-02 10:51 | ROOPDOC ---
[facility] Report Of Operation Report of Operation DATE OF PROCEDURE: 11/02/19 PREPROCEDURE DIAGNOSIS: Neurogenic bladder, urinary incontinence. POSTPROCEDURE DIAGNOSIS: Neurogenic bladder, urinary incontinence. PROCEDURE: Cystoscopy, bladder Botox injections. SURGEON: Dr. Koffi Jimenez MOTTLE LAY UP OPERATOR: None. ANESTHESIA: Monitored Anesthesia Care (MAC). OPERATIVE INDICATIONS: This is a 29-year-old male with a neurogenic bladder who has several episodes of urge incontinence a day. He was brought to the operating room today for the above listed procedures. DESCRIPTION OF PROCEDURE: The patient was brought to the operating room where anesthesia was administered. Prophylactic antibiotics were infused. He was then placed in dorsal lithotomy position and prepped and draped in the usual sterile fashion. A rigid cystoscope was inserted into the urethral meatus and advanced into the bladder. Once inside the bladder, it was examined and no abnormalities were seen. I then then injected a total of 300 units in 20 mL of injectable saline throughout the bladder. This was done in approximately 30 different locations. I made sure not to inject close to the ureteral orifices. Once done, the bladder was drained of all fluids and this marked the conclusion of the procedure. The patient was then taken out of dorsal lithotomy position, awakened from anesthesia and transferred to recovery room in stable condition. Estimated blood loss: 5mL. Complications: None. Specimen: None. Plan: The patient will followup in the clinic in a few weeks for a postoperative visit. KOFFI JIMENEZ MD Nov 02, 2019 10:51
[2019-11-02 11:07] VITALS: BP 125/78
== END 2019-11-02 11:07 | disposition home or self-care (01) ==
LOC: M SDC 09:08
PROVIDERS: ATTEND Urology
DX: N31.9 Neuromuscular dysfunction of bladder, unspecified (principal); N39.41 Urge incontinence; G82.20 Paraplegia, unspecified; Z99.3 Dependence on wheelchair; Z79.899 Other long term (current) drug therapy; F17.228 Nicotine dependence, chewing tobacco, with other nicotine-induced disorders
CPT/HCPCS: 52287; J0585; J0690; J1100; J2250; J2405; J3010

== ENCOUNTER 2019-11-15 10:35 | Outpatient (CLI) | payer MEDICARE, MEDICAID ==
[~2019-11-15] VITALS: Ht 177.8 cm; Wt 75.0 kg
[2019-11-15 11:00] VITALS: BP 124/68
[2019-11-15] MEDS ORDERED: ZOLEDRONIC ACID 5 MG in IV 1 EA IV ONE (11:00)
[2019-11-15 12:10] VITALS: BP 120/71
== END 2019-11-15 12:10 | disposition home or self-care (01) ==
LOC: M INFU 10:35
PROVIDERS: ATTEND Family Medicine
DX: M81.8 Other osteoporosis without current pathological fracture (principal); S24.11 Complete lesion of thoracic spinal cord; M54.9 Dorsalgia, unspecified; R32 Unspecified urinary incontinence; N31.0 Uninhibited neuropathic bladder, not elsewhere classified; Z79.899 Other long term (current) drug therapy
CPT/HCPCS: 51702; 72052; 72072; 72110; 87086; 96365; G0463; J3489

== ENCOUNTER → 2019-11-15 | Outpatient (CLI) | payer MEDICARE, MEDICAID ==
[~2019-11-15] MED LIST changes: -LR 1,000 ML IV ONE; -ceFAZolin SOD 2 GM in IV 1 EA IV ONE
--- NOTE | 2019-11-15 16:06 | REPPI ---
Eight views cervical spine, two views thoracic spine and five views lumbar spine: 11/15/2019. Indication: Spine tumor. Comparison: None. Findings: The patient is status post laminectomies and posterior instrument effusion extending from T3-T8. The surgical hardware appears intact. Multiple endovascular coils are noted within the left upper quadrant. Retrievable IVC filter is noted. There is no evidence of acute fracture, subluxation or dislocation. No lytic or blastic lesions of the spine are detected. There is no instability of the cervical spine during dynamic testing. Impression: No acute osseous injury of the cervical, thoracic or lumbar spine. Postoperative sequelae of the thoracic spine. Surgical hardware appears intact. No definite recurrent neoplasm is detected by this technique. Electronically Signed by Carl Abbasi DO 11/15/2019 03:57 P
== END ==
LOC: M PLAIMG 12:32
PROVIDERS: ATTEND Family Medicine
DX: S24.11 Complete lesion of thoracic spinal cord (principal); M54.9 Dorsalgia, unspecified

== ENCOUNTER → 2019-11-15 | Outpatient (REF) | payer MEDICARE, MEDICAID | LOC: M SMT 16:55 | PROVIDERS: ATTEND Nurse Practitioner Women's Health | DX: R32 Unspecified urinary incontinence (principal) ==

== ENCOUNTER → 2019-12-06 | Outpatient (CLI) | payer MEDICARE, MEDICAID ==
[2019-12-06 10:36] LABS: HEMATOCRIT 46.3 % (42.0-52.0); MEAN CORPUSCULAR HEMOGLOBIN 30.3 pg (27.0-33.0); MEAN CORPUSCULAR HGB CONC 32.4 g/dl (32.0-36.5); MEAN CORPUSCULAR VOLUME 93.5 fl (80.0-96.0); PLATELET COUNT, AUTOMATED 259 10^3/uL (150-450); RED BLOOD COUNT 4.95 10^6/uL (4.30-6.10); WHITE BLOOD COUNT 5.5 10^3/uL (4.0-10.0)
[2019-12-06 11:07] LABS: FOLLICLE STIMULATING HORMONE 4.3 mIU/mL (1.4-18.1); FREE T4 1.14 NG/DL (0.76-1.46); LUTEINIZING HORMONE 4.2 mIU/mL (1.5-9.3); PROLACTIN 8.5 NG/ML (2.1-17.7); THYROID STIMULATING HORMONE 1.95 uIU/ML (0.358-3.740)
[2019-12-08 00:07] LABS: TRANSFERRIN 229 mg/dL (200-370)
== END ==
LOC: M PLALAB 08:23
PROVIDERS: ATTEND Student in an Organized Health Care Education/Training Program
DX: R53.83 Other fatigue (principal)

== ENCOUNTER → 2019-12-27 | Outpatient (CLI) | payer MEDICARE, MEDICAID | LOC: M WHC 10:24 | PROVIDERS: ATTEND Family Medicine | DX: M81.8 Other osteoporosis without current pathological fracture (principal) ==

== ENCOUNTER → 2020-05-13 | Outpatient (REF) | payer MEDICARE, MEDICAID ==
[~2020-05-13] MED LIST changes: -LORA-436 PO; +LORA-930 PO
[2020-05-13 11:19] LABS: HEMATOCRIT 50.5 % (42.0-52.0); HEMOGLOBIN 16.8 g/dl (13.5-17.5); MEAN CORPUSCULAR HGB CONC 33.3 g/dl (32.0-36.5); MEAN CORPUSCULAR VOLUME 93.2 fl (80.0-96.0); PLATELET COUNT, AUTOMATED 277 10^3/uL (150-450); RED BLOOD COUNT 5.42 10^6/uL (4.30-6.10); WHITE BLOOD COUNT 6.7 10^3/uL (4.0-10.0)
[2020-05-13 11:24] LABS: ALBUMIN 4.2 GM/DL (3.2-5.2); ALT/SGPT 28 U/L (12-78); BILIRUBIN,TOTAL 0.8 MG/DL (0.2-1.0); BLOOD UREA NITROGEN 12 MG/DL (7-18); CALCIUM LEVEL 9.4 MG/DL (8.5-10.1); CARBON DIOXIDE LEVEL 35 MEQ/L (21-32); CHLORIDE LEVEL 102 MEQ/L (98-107); CHOLESTEROL LEVEL 181 MG/DL (<200); CHOLESTEROL RISK RATIO 4.113 (<5); CREATININE FOR GFR 0.78 MG/DL (0.70-1.30); GLOMERULAR FILTRATION RATE > 60.0 (>60); GLUCOSE, FASTING 79 MG/DL (70-100); HDL CHOLESTEROL 44 MG/DL (>40); LDL CHOLESTEROL 121 MG/DL (<100); NON-HDL-C 137 MG/DL; POTASSIUM SERUM 4.2 MEQ/L (3.5-5.1); SODIUM LEVEL 138 MEQ/L (136-145); TOTAL PROTEIN 7.4 GM/DL (6.4-8.2); TRIGLYCERIDES LEVEL 79 MG/DL (<150)
[2020-05-15 04:07] LABS: PSA TOTAL 1.1 ng/mL (0.0-4.0)
== END ==
LOC: M SFHCPLAZ 08:22
PROVIDERS: ATTEND Family Medicine
DX: E29.1 Testicular hypofunction (principal); M81.8 Other osteoporosis without current pathological fracture; N31.0 Uninhibited neuropathic bladder, not elsewhere classified; R79.89 Other specified abnormal findings of blood chemistry

== ENCOUNTER → 2020-05-27 | Outpatient (CLI) | payer MEDICARE, MEDICAID ==
[~2020-05-27] MED LIST changes: +LORA-436 PO; -LORA-930 PO
[2020-05-28 19:08] LABS: TESTOSTERONE FREE (DIRECT) 8.4 pg/mL (8.7-25.1)
== END ==
LOC: M PLALAB 08:09
PROVIDERS: ATTEND Family Medicine
DX: E29.1 Testicular hypofunction (principal)

== ENCOUNTER → 2020-08-23 | Outpatient (CLI) | payer MEDICARE, MEDICAID ==
--- NOTE | 2020-09-01 18:20 | SLEEPHOME ---
DATE: 08/23/2020 ORDERED BY: Dr. Sewell Diagnostic home sleep testing was performed due to concern for the obstructive sleep apnea syndrome. For testing, a nocturnal T3 respiratory monitoring device was used. Continuous record was made of pulse, oxygen saturation, air flow, chest and abdominal strain, and body position. Seven hours and 57 minutes of data were reviewed. There was 5 hours and 3 minutes marked as time in bed. During the interval marked time in bed, there were 129 respiratory events identified of 10 seconds in duration or greater for a respiratory disturbance index of 25. The events were obstructive, mixed and central. In total 92 of the 129 respiratory events were central. Baseline pulse rate was 63 beats per minute. Pulse rate ranged 37 to 186. Baseline saturation was 95%. Saturations fell to 91%. IMPRESSION: Abnormal diagnostic home sleep test with obstructive and central respiratory patterning. Considerations would be obstructive sleep apnea syndrome versus central events due to pain medications. RECOMMENDATION: If obstructive sleep apnea syndrome is of concern, a referral for a formal sleep evaluation may be prudent. STEPHIE
== END ==
LOC: M SLEEP HO 10:01
PROVIDERS: ATTEND Family Medicine
DX: G47.9 Sleep disorder, unspecified (principal); Z79.891 Long term (current) use of opiate analgesic; G89.29 Other chronic pain
CPT/HCPCS: G0399 ×2

== ENCOUNTER → 2020-10-25 | Outpatient (CLI) | payer MEDICARE, MEDICAID ==
--- NOTE | 2020-10-30 16:38 | SLEEP ---
[facility] NOCTURNAL POLYSOMNOGRAPHY DATE: 10/25/2020 ORDERED BY: Dr. Foster Nocturnal polysomnography was performed for evaluation of sleep physiology in this patient with suspected obstructive sleep apnea syndrome based on clinical grounds, supported by home testing, reviewing a respiratory event index of 25. There was 8 hours and 8 minutes of data reviewed. There was 446.5 minutes of sleep identified. Sleep latency was normal at 6 minutes. REM sleep was delayed at 140 minutes. Sleep architecture showed poor progression with some fragmentation. There were three REM cycles appreciated. Overall sleep efficiency was 92.7%. The electrocardiogram showed a sinus rhythm at baseline with an average heart rate of 60 beats per minute. EEG showed normal waveforms for wake and sleep. There were 222 respiratory events identified of 10 seconds in duration or greater for an apnea-hypopnea index of 29.8. The events were both obstructive and central. There were 138 central apneas seen, 14 mixed apneas. Events were not exclusive to sleep stage, were more frequent but not exclusive to the supine posture. Arousals from respiratory events occurred 11.8 times per hour, and oxygen desaturations were seen below 90%. There was some occasional activity in the limb leads, and snoring was noted throughout. IMPRESSION: Complex sleep apnea syndrome (G47.31, G47.33) Apnea-hypopnea index of 29.8. RECOMMENDATION: The patient should be encouraged to return to the sleep disorder center for pressure therapy. Given the occurrence of central events, a bilevel device and backup rate may be needed. In the interim, alcohol and sedative avoidance should be practiced and caution exercised during the operation of motor vehicles.
== END ==
LOC: M SLEEP 20:00
PROVIDERS: ATTEND Internal Medicine Pulmonary Disease
DX: G47.33 Obstructive sleep apnea (adult) (pediatric) (principal); G47.31 Primary central sleep apnea

== ENCOUNTER → 2020-12-11 | Outpatient (REF) | payer MEDICARE, MEDICAID ==
[~2020-12-11] MED LIST changes: -LORA-436 PO; +LORA-930 PO
[2020-12-11 14:02] LABS: HEMATOCRIT 52.2 % (42.0-52.0); HEMOGLOBIN 16.8 g/dl (13.5-17.5); MEAN CORPUSCULAR HEMOGLOBIN 31.2 pg (27.0-33.0); MEAN CORPUSCULAR HGB CONC 32.2 g/dl (32.0-36.5); MEAN CORPUSCULAR VOLUME 96.8 fl (80.0-96.0); PLATELET COUNT, AUTOMATED 256 10^3/uL (150-450); RED BLOOD COUNT 5.39 10^6/uL (4.30-6.10); WHITE BLOOD COUNT 7.4 10^3/uL (4.0-10.0)
[2020-12-12 20:10] LABS: TESTOSTERONE FREE (DIRECT) 27.4 pg/mL (8.7-25.1)
== END ==
LOC: M PLALAB 10:19
PROVIDERS: ATTEND Family Medicine
DX: R79.89 Other specified abnormal findings of blood chemistry (principal)

== ENCOUNTER → 2021-04-15 | Outpatient (CLI) | payer MEDICARE, MEDICAID ==
--- NOTE | 2021-04-16 13:46 | SLEEPCENT ---
NOCTURNAL POLYSOMNOGRAPHY CPAP TITRATION DATE: 04/15/2021 ORDERED BY: Chuy Foster M.D. Nocturnal polysomnography was performed for the titration of pressure therapy in this patient with obstructive sleep apnea syndrome with apnea-hypopnea index of 29.8. For testing a ResMed F30 full face mask of medium size was used, 4 cm of water pressure were applied to the circuit, and the lights were extinguished. 7 hours and 4 minutes of data were reviewed. There were 380.5 minutes of sleep identified. Sleep latency was mildly prolonged at 14 minutes. REM latency was short at 53 minutes. Sleep architecture was good with four REM cycles. Mild fragmentation was seen early in the study. Overall sleep efficiency was 90.7%. The patient's electrocardiogram showed a sinus rhythm with an average heart rate of 76 beats per minute. EEG showed normal waveforms for wake and sleep. Respiratory events were fully palliated with CPAP at a pressure of +10 and remaining measures of sleep physiology were normal. IMPRESSION: Obstructive sleep apnea syndrome (G47.33). RECOMMENDATION: Nightly use of pressure therapy 10 cm of water.
== END ==
LOC: M SLEEP 20:00
PROVIDERS: ATTEND Internal Medicine Pulmonary Disease
DX: G47.33 Obstructive sleep apnea (adult) (pediatric) (principal)

== ENCOUNTER → 2021-05-02 | Outpatient (REF) | payer MEDICARE, MEDICAID ==
[2021-05-02 10:20] LABS: HEMATOCRIT 51.2 % (42.0-52.0); HEMOGLOBIN 16.9 g/dl (13.5-17.5); MEAN CORPUSCULAR HEMOGLOBIN 31.6 pg (27.0-33.0); MEAN CORPUSCULAR VOLUME 95.7 fl (80.0-96.0); PLATELET COUNT, AUTOMATED 253 10^3/uL (150-450); RED BLOOD COUNT 5.35 10^6/uL (4.30-6.10); WHITE BLOOD COUNT 7.5 10^3/uL (4.0-10.0)
[2021-05-02 10:41] LABS: ALT/SGPT 32 U/L (12-78); BILIRUBIN,TOTAL 0.6 MG/DL (0.2-1.0); BLOOD UREA NITROGEN 8 MG/DL (7-18); CALCIUM LEVEL 9.3 MG/DL (8.5-10.1); CARBON DIOXIDE LEVEL 31 MEQ/L (21-32); CHLORIDE LEVEL 100 MEQ/L (98-107); CHOLESTEROL LEVEL 155 MG/DL (<200); CHOLESTEROL RISK RATIO 3.604 (<5); CREATININE FOR GFR 0.85 MG/DL (0.70-1.30); GLOMERULAR FILTRATION RATE > 60.0 (>60); GLUCOSE, FASTING 94 MG/DL (70-100); HDL CHOLESTEROL 43 MG/DL (>40); LDL CHOLESTEROL 85 MG/DL (<100); NON-HDL-C 112 MG/DL; POTASSIUM SERUM 4.2 MEQ/L (3.5-5.1); SODIUM LEVEL 138 MEQ/L (136-145); TOTAL PROTEIN 7.3 GM/DL (6.4-8.2); TRIGLYCERIDES LEVEL 133 MG/DL (<150)
[2021-05-03 10:08] LABS: TESTOSTERONE FREE (DIRECT) 27.6 pg/mL (8.7-25.1)
== END ==
LOC: M PLALAB 08:37
PROVIDERS: ATTEND Family Medicine
DX: G47.31 Primary central sleep apnea (principal); E29.1 Testicular hypofunction; E78.1 Pure hyperglyceridemia; M81.8 Other osteoporosis without current pathological fracture; E78.6 Lipoprotein deficiency

== ENCOUNTER → 2021-05-16 | Outpatient (REF) | payer MEDICARE, MEDICAID | LOC: M SFHCPLAZ 10:28 | PROVIDERS: ATTEND Family Medicine | DX: G89.21 Chronic pain due to trauma (principal) ==

== ENCOUNTER → 2021-05-21 | Outpatient (REF) | payer MEDICARE, MEDICAID ==
[2021-05-21 18:30] LABS: APPEARANCE, URINE CLEAR (CLEAR); BACTERIA, URINE AUTO NEGATIVE (NEGATIVE); BILIRUBIN, URINE AUTO NEGATIVE (NEGATIVE); BLOOD, URINE BLOOD 1+ (NEGATIVE); COLOR, URINE YELLOW (YELLOW); GLUCOSE, URINE (UA) AUTO NEGATIVE (NEGATIVE); KETONE, URINE AUTO NEGATIVE (NEGATIVE); LEUKOCYTE ESTERASE, URINE AUTO NEGATIVE (NEGATIVE); MUCUS, URINE SMALL (NEGATIVE); NITRITE, URINE AUTO NEGATIVE (NEGATIVE); PROTEIN, URINE AUTO NEGATIVE (NEGATIVE); RBC, URINE AUTO 3 /HPF (0-3); SPECIFIC GRAVITY URINE AUTO 1.009 (1.002-1.035); SQUAMOUS EPITHELIAL CELL UR AU 0 /HPF (0-6); UROBILINOGEN, URINE AUTO 0.2 mg/dL (0.0-2.0); WBC, URINE AUTO 1 /HPF (0-3)
== END ==
LOC: M SMT 16:50
PROVIDERS: ATTEND Nurse Practitioner Women's Health
DX: N31.9 Neuromuscular dysfunction of bladder, unspecified (principal); Z79.899 Other long term (current) drug therapy
CPT/HCPCS: 51702; 81001; 87086; G0463

== ENCOUNTER → 2022-06-17 | Outpatient (CLI) | payer MEDICARE, MEDICAID ==
[2022-06-17 10:50] LABS: HEMATOCRIT 50.3 % (42.0-52.0); HEMOGLOBIN 16.4 g/dl (13.5-17.5); MEAN CORPUSCULAR HEMOGLOBIN 31.1 pg (27.0-33.0); MEAN CORPUSCULAR HGB CONC 32.6 g/dl (32.0-36.5); MEAN CORPUSCULAR VOLUME 95.4 fl (80.0-96.0); PLATELET COUNT, AUTOMATED 244 10^3/uL (150-450); RED BLOOD COUNT 5.27 10^6/uL (4.30-6.10)
[2022-06-17 11:07] LABS: ALBUMIN 4.1 GM/DL (3.2-5.2); ALT/SGPT 35 U/L (12-78); BILIRUBIN,TOTAL 0.8 MG/DL (0.2-1.0); BLOOD UREA NITROGEN 9 MG/DL (7-18); CALCIUM LEVEL 9.3 MG/DL (8.5-10.1); CARBON DIOXIDE LEVEL 33 MEQ/L (21-32); CHLORIDE LEVEL 105 MEQ/L (98-107); CHOLESTEROL LEVEL 194 MG/DL (<200); CHOLESTEROL RISK RATIO 4.974 (<5); CREATININE FOR GFR 0.81 MG/DL (0.70-1.30); GLOMERULAR FILTRATION RATE > 60.0 (>60); GLUCOSE, FASTING 82 MG/DL (70-100); HDL CHOLESTEROL 39 MG/DL (>40); LDL CHOLESTEROL 130 MG/DL (<100); NON-HDL-C 155 MG/DL; POTASSIUM SERUM 4.2 MEQ/L (3.5-5.1); SODIUM LEVEL 140 MEQ/L (136-145); TOTAL PROTEIN 7.4 GM/DL (6.4-8.2); TRIGLYCERIDES LEVEL 124 MG/DL (<150)
[2022-06-17 11:15] LABS: HEMOGLOBIN A1c 4.9 %
[2022-06-17 11:39] LABS: TOTAL 25(OH) VITAMIN D 54.8 NG/ML (30.0-100.0)
== END ==
LOC: M PLALAB 08:20
PROVIDERS: ATTEND Family Medicine
DX: G89.21 Chronic pain due to trauma (principal); M81.8 Other osteoporosis without current pathological fracture; E78.1 Pure hyperglyceridemia; E78.6 Lipoprotein deficiency; G47.31 Primary central sleep apnea; Z13.1 Encounter for screening for diabetes mellitus; Z79.899 Other long term (current) drug therapy

== ENCOUNTER → 2022-06-17 | Outpatient (CLI) | payer MEDICARE, MEDICAID ==
[2022-06-18 18:11] LABS: TESTOSTERONE FREE (DIRECT) 11.8 pg/mL (8.7-25.1)
== END ==
LOC: M LAB 09:58
PROVIDERS: ATTEND Family Medicine
DX: E29.1 Testicular hypofunction (principal)

== ENCOUNTER → 2022-07-02 | Outpatient (REF) | payer MEDICARE, MEDICAID | LOC: M SFHCPLAZ 10:46 | PROVIDERS: ATTEND Family Medicine | DX: G89.21 Chronic pain due to trauma (principal); Z79.899 Other long term (current) drug therapy ==

== ENCOUNTER → 2023-05-10 | Outpatient (CLI) | payer MEDICARE, MEDICAID ==
[~2023-05-10] MED LIST changes: +MORP1TAB21 PO; +NYST100085 TOP; -NYSTOI TOP; +OXYC10TA12 PO; +TEST200I14
[2023-05-10 16:11] LABS: HEMATOCRIT 49.7 % (42.0-52.0); HEMOGLOBIN 16.1 g/dl (13.5-17.5); MEAN CORPUSCULAR HEMOGLOBIN 30.7 pg (27.0-33.0); MEAN CORPUSCULAR HGB CONC 32.4 g/dl (32.0-36.5); MEAN CORPUSCULAR VOLUME 94.7 fl (80.0-96.0); PLATELET COUNT, AUTOMATED 269 10^3/uL (150-450); RED BLOOD COUNT 5.25 10^6/uL (4.30-6.10); WHITE BLOOD COUNT 8.4 10^3/uL (4.0-10.0)
[2023-05-10 16:44] LABS: BLOOD UREA NITROGEN 11 MG/DL (9-23); CALCIUM LEVEL 8.9 MG/DL (8.5-10.1); CARBON DIOXIDE LEVEL 33 MMOL/L (20-31); CHLORIDE LEVEL 100 MMOL/L (98-107); CREATININE FOR GFR 0.89 MG/DL (0.70-1.30); GLOMERULAR FILTRATION RATE > 60.0 (>60); GLUCOSE, FASTING 89 MG/DL (60-100); POTASSIUM SERUM 4.5 MMOL/L (3.5-5.1); SODIUM LEVEL 138 MMOL/L (136-145)
[2023-05-10 18:23] LABS: APPEARANCE, URINE CLEAR (CLEAR); BACTERIA, URINE AUTO NEGATIVE (NEGATIVE); BILIRUBIN, URINE AUTO NEGATIVE (NEGATIVE); BLOOD, URINE BLOOD 1+ (NEGATIVE); COLOR, URINE STRAW (YELLOW); GLUCOSE, URINE (UA) AUTO NEGATIVE (NEGATIVE); KETONE, URINE AUTO NEGATIVE (NEGATIVE); LEUKOCYTE ESTERASE, URINE AUTO NEGATIVE (NEGATIVE); NITRITE, URINE AUTO NEGATIVE (NEGATIVE); PROTEIN, URINE AUTO NEGATIVE (NEGATIVE); RBC, URINE AUTO 0 /HPF (0-3); SPECIFIC GRAVITY URINE AUTO 1.006 (1.002-1.035); SQUAMOUS EPITHELIAL CELL UR AU 0 /HPF (0-6); UROBILINOGEN, URINE AUTO 0.2 mg/dL (0.0-2.0); WBC, URINE AUTO 0 /HPF (0-3)
== END ==
LOC: M PLALAB 13:55
PROVIDERS: ATTEND Physician Assistant
DX: Z01.818 Encounter for other preprocedural examination (principal); R32 Unspecified urinary incontinence

== ENCOUNTER 2023-05-19 11:31 | Day surgery (SDC) | payer MEDICARE, MEDICAID ==
[~2023-05-19] VITALS: Ht 172.7 cm; Wt 82.1 kg
[~2023-05-19 11:31] MED LIST changes: +ceFAZolin SOD 2 GM in IV 1 EA IV ONE
[2023-05-19] MEDS ORDERED: ACETAMINOPHEN 1000MG 100ML IV BAG As Ordered ONE (12:54)
[2023-05-19] MEDS ORDERED: LIDOCAINE 2% 100MG/5ML SDV (FOR ANES.) As Ordered ONE (12:54)
[2023-05-19] MEDS ORDERED: propofoL 200 MG/20 ML VIAL As Ordered ONE (12:55)
[2023-05-19] MEDS ORDERED: BOTOX THERAPEUTIC 100 UNIT VIAL As Ordered ONE (13:06)
[2023-05-19] MEDS ORDERED: LIDOCAINE 2% 5ML JELLY UROJET As Ordered ONE (13:07)
[2023-05-19] MEDS ORDERED: fentaNYL 100 MCG/2 ML INJECTION As Ordered ONE (13:33)
[2023-05-19 14:40] VITALS: BP 130/76; TEMP 98.8; O2SAT 98
[2023-05-20] MEDS ORDERED: ONDANSETRON 4MG 2ML VIAL As Ordered ONE (10:27)
[2023-05-20] MEDS ORDERED: LIDOCAINE 2% 100MG/5ML SDV (FOR ANES.) As Ordered ONE (10:27)
[2023-05-20] MEDS ORDERED: propofoL 200 MG/20 ML VIAL As Ordered ONE (10:27)
== END 2023-05-19 14:50 | disposition home or self-care (01) ==
LOC: M SDC 11:31
PROVIDERS: ATTEND Urology
DX: N31.9 Neuromuscular dysfunction of bladder, unspecified (principal); N39.41 Urge incontinence; G82.20 Paraplegia, unspecified; Z79.899 Other long term (current) drug therapy; G47.33 Obstructive sleep apnea (adult) (pediatric); Z86.73 Personal history of transient ischemic attack (TIA), and cerebral infarction without residual deficits
CPT/HCPCS: 52287; A4215; J0131; J0585; J0690; J3010

== ENCOUNTER → 2023-06-25 | Outpatient (CLI) | payer MEDICARE, MEDICAID ==
[~2023-06-25] MED LIST changes: -ceFAZolin SOD 2 GM in IV 1 EA IV ONE
[2023-06-25 14:28] LABS: HEMATOCRIT 51.8 % (42.0-52.0); MEAN CORPUSCULAR HEMOGLOBIN 30.2 pg (27.0-33.0); MEAN CORPUSCULAR HGB CONC 32.8 g/dl (32.0-36.5); MEAN CORPUSCULAR VOLUME 92.2 fl (80.0-96.0); PLATELET COUNT, AUTOMATED 266 10^3/uL (150-450); RED BLOOD COUNT 5.62 10^6/uL (4.30-6.10); WHITE BLOOD COUNT 6.7 10^3/uL (4.0-10.0)
[2023-06-25 14:45] LABS: ALBUMIN 4.2 G/DL (3.2-5.2); ALKALINE PHOSPHATASE 73 U/L (46-116); ALT/SGPT 39 U/L (7.0-40); AST/SGOT 15 U/L (<34); BLOOD UREA NITROGEN 10 MG/DL (9-23); CALCIUM LEVEL 9.2 MG/DL (8.5-10.1); CARBON DIOXIDE LEVEL 33 MMOL/L (20-31); CHLORIDE LEVEL 98 MMOL/L (98-107); CHOLESTEROL LEVEL 185 MG/DL (<200); CHOLESTEROL RISK RATIO 5.31 (<5); CREATININE FOR GFR 0.85 MG/DL (0.70-1.30); GLOMERULAR FILTRATION RATE > 60.0 (>60); GLUCOSE, FASTING 74 MG/DL (60-100); HDL CHOLESTEROL 34.8 MG/DL (>40); LDL CHOLESTEROL 121.8 MG/DL (<100); NON-HDL-C 150.2 MG/DL; POTASSIUM SERUM 4.1 MMOL/L (3.5-5.1); SODIUM LEVEL 137 MMOL/L (136-145); TOTAL 25(OH) VITAMIN D 66.8 NG/ML (20.0-100.0); TOTAL PROTEIN 7.1 G/DL (5.7-8.2); TRIGLYCERIDES LEVEL 142 MG/DL (<150)
[2023-06-28 19:12] LABS: TESTOSTERONE FREE (DIRECT) 19.5 pg/mL (8.7-25.1)
== END ==
LOC: M PLALAB 10:16
PROVIDERS: ATTEND Family Medicine
DX: M81.0 Age-related osteoporosis without current pathological fracture (principal); E78.00 Pure hypercholesterolemia, unspecified

== ENCOUNTER → 2023-07-02 | Outpatient (REF) | payer MEDICARE, MEDICAID | LOC: M SFHCPLAZ 17:05 | PROVIDERS: ATTEND Family Medicine | DX: N31.9 Neuromuscular dysfunction of bladder, unspecified (principal); Z79.899 Other long term (current) drug therapy ==

== ENCOUNTER → 2023-10-11 | Outpatient (CLI) | payer MEDICARE, MEDICAID ==
[2023-10-11 11:21] LABS: ALBUMIN 3.7 G/DL (3.2-5.2); ALKALINE PHOSPHATASE 61 U/L (46-116); ALT/SGPT 41 U/L (7.0-40); AST/SGOT 19 U/L (<34); BILIRUBIN,TOTAL 0.8 MG/DL (0.3-1.2); BLOOD UREA NITROGEN 11 MG/DL (9-23); CALCIUM LEVEL 8.9 MG/DL (8.5-10.1); CARBON DIOXIDE LEVEL 32 MMOL/L (20-31); CHLORIDE LEVEL 104 MMOL/L (98-107); CHOLESTEROL LEVEL 85 MG/DL (<200); CREATININE FOR GFR 0.84 MG/DL (0.70-1.30); GLOMERULAR FILTRATION RATE > 60.0 (>60); GLUCOSE, FASTING 85 MG/DL (60-100); HDL CHOLESTEROL 30.3 MG/DL (>40); LDL CHOLESTEROL 37.7 MG/DL (<100); NON-HDL-C 54.7 MG/DL; POTASSIUM SERUM 4.4 MMOL/L (3.5-5.1); SODIUM LEVEL 144 MMOL/L (136-145); TOTAL PROTEIN 6.5 G/DL (5.7-8.2); TRIGLYCERIDES LEVEL 85 MG/DL (<150)
== END ==
LOC: M PLALAB 07:55
PROVIDERS: ATTEND Family Medicine
DX: E78.2 Mixed hyperlipidemia (principal)

== ENCOUNTER 2023-10-20 11:50 | Outpatient (CLI) | payer MEDICARE, MEDICAID ==
[~2023-10-20] VITALS: Ht 177.8 cm; Wt 83.0 kg
[2023-10-20 11:50] VITALS: BP 96/52; O2SAT 98
[2023-10-20] MEDS ORDERED: ZOLEDRONIC ACID 5 MG in IV 1 EA IV ONE (12:00)
[2023-10-20] MEDS ORDERED: NEUR100C PO (12:05)
[2023-10-20 12:34] VITALS: BP 105/53; O2SAT 95
== END 2023-10-20 12:35 ==
LOC: M INFU 11:50
PROVIDERS: ATTEND Family Medicine
DX: M81.8 Other osteoporosis without current pathological fracture (principal)
CPT/HCPCS: 96365; J3489

== ENCOUNTER → 2023-11-10 | Outpatient (CLI) | payer MEDICARE, MEDICAID ==
[~2023-11-10] MED LIST changes: +NEUR100C PO
[2023-11-10 16:05] LABS: APPEARANCE, URINE CLEAR (CLEAR); BACTERIA, URINE AUTO 1+ (NEGATIVE); BILIRUBIN, URINE AUTO NEGATIVE (NEGATIVE); BLOOD, URINE BLOOD NEGATIVE (NEGATIVE); COLOR, URINE YELLOW (YELLOW); GLUCOSE, URINE (UA) AUTO NEGATIVE (NEGATIVE); KETONE, URINE AUTO NEGATIVE (NEGATIVE); LEUKOCYTE ESTERASE, URINE AUTO 1+ (NEGATIVE); NITRITE, URINE AUTO NEGATIVE (NEGATIVE); PROTEIN, URINE AUTO NEGATIVE (NEGATIVE); RBC, URINE AUTO 1 /HPF (0-3); SPECIFIC GRAVITY URINE AUTO 1.009 (1.002-1.035); SQUAMOUS EPITHELIAL CELL UR AU 0 /HPF (0-6); UROBILINOGEN, URINE AUTO 0.2 mg/dL (0.0-2.0); WBC, URINE AUTO 9 /HPF (0-3)
[2023-11-10 16:24] LABS: HEMATOCRIT 53.3 % (42.0-52.0); HEMOGLOBIN 17.4 g/dl (13.5-17.5); MEAN CORPUSCULAR HGB CONC 32.6 g/dl (32.0-36.5); MEAN CORPUSCULAR VOLUME 94.8 fl (80.0-96.0); PLATELET COUNT, AUTOMATED 271 10^3/uL (150-450); RED BLOOD COUNT 5.62 10^6/uL (4.30-6.10); WHITE BLOOD COUNT 9.4 10^3/uL (4.0-10.0)
[2023-11-10 16:49] LABS: BLOOD UREA NITROGEN 8 MG/DL (9-23); CALCIUM LEVEL 9.2 MG/DL (8.5-10.1); CARBON DIOXIDE LEVEL 33 MMOL/L (20-31); CHLORIDE LEVEL 102 MMOL/L (98-107); CREATININE FOR GFR 0.87 MG/DL (0.70-1.30); GLOMERULAR FILTRATION RATE > 60.0 (>60); GLUCOSE, FASTING 121 MG/DL (60-100); POTASSIUM SERUM 4.6 MMOL/L (3.5-5.1); SODIUM LEVEL 139 MMOL/L (136-145)
== END ==
LOC: M PLALAB 12:10
PROVIDERS: ATTEND Physician Assistant
DX: Z01.818 Encounter for other preprocedural examination (principal); N31.9 Neuromuscular dysfunction of bladder, unspecified; Z79.899 Other long term (current) drug therapy

== ENCOUNTER 2023-12-01 09:23 | Day surgery (SDC) | payer MEDICARE, MEDICAID ==
[~2023-12-01] VITALS: Ht 177.8 cm; Wt 83.0 kg
[~2023-12-01 09:23] MED LIST changes: +ATOR40TA75 PO; +BACTDSTA PO; +GABA-282 PO; +LIDOCAINE 2% 100MG/5ML SDV (FOR ANES.) As Ordered ONE; +MIDAZOLAM INJ 2MG/2ML VIAL As Ordered ONE; +OMEG10002 PO; +ONDANSETRON 4MG 2ML VIAL As Ordered ONE; +VITA100093 PO; +fentaNYL 100 MCG/2 ML INJECTION As Ordered ONE; +propofoL 200 MG/20 ML VIAL As Ordered ONE
[2023-12-01] MEDS: LR 1,000 ML IV SCH (10:45)
[2023-12-01] MEDS: traMADol 50 MG TAB PO ONE (12:18)
[2023-12-01] MEDS ORDERED: BOTOX THERAPEUTIC 100 UNIT VIAL As Ordered ONE (13:01)
[2023-12-01] MEDS ORDERED: LIDOCAINE 2% 5ML JELLY UROJET As Ordered ONE (13:22)
[2023-12-01] MEDS ORDERED: ACETAMINOPHEN 1000MG 100ML IV BAG As Ordered ONE (13:23)
[2023-12-01] MEDS: ceFAZolin SOD 2 GM in IV 1 EA IV ONE (13:27)
[2023-12-01] MEDS: BOTOX THERAPEUTIC 100 UNIT VIAL INJ ONE (13:41)
[2023-12-01] MEDS: LIDOCAINE 2% JELLY 6ML SYRINGE As Ordered ONE (13:42)
[2023-12-01 14:22] VITALS: BP 122/67; TEMP 98.4; O2SAT 96
== END 2023-12-01 14:22 | disposition home or self-care (01) ==
LOC: M SDC 09:23
PROVIDERS: ATTEND Urology
DX: N31.9 Neuromuscular dysfunction of bladder, unspecified (principal); N39.41 Urge incontinence; G82.20 Paraplegia, unspecified; G47.30 Sleep apnea, unspecified; Z86.718 Personal history of other venous thrombosis and embolism; Z79.899 Other long term (current) drug therapy; Z87.891 Personal history of nicotine dependence
CPT/HCPCS: 52287; A4215; J0131; J0585; J0690; J1100; J2250; J2405; J3010

== ENCOUNTER 2024-03-10 15:54 | Inpatient (IN) | payer MEDICARE, MEDICAID ==
[~2024-03-10] VITALS: Ht 177.8 cm; Wt 87.5 kg
[~2024-03-10 15:54] MED LIST changes: -LIDOCAINE 2% 100MG/5ML SDV (FOR ANES.) As Ordered ONE; -MIDAZOLAM INJ 2MG/2ML VIAL As Ordered ONE; -NITR1CAP27 PO; +NITR50CA51 PO; -ONDANSETRON 4MG 2ML VIAL As Ordered ONE; -fentaNYL 100 MCG/2 ML INJECTION As Ordered ONE; -propofoL 200 MG/20 ML VIAL As Ordered ONE
[2024-03-10] MEDS: NS 1,000 ML IV ONE ×3 (17:45→18:55)
[2024-03-10 18:04] LABS: BASO # 0.1 10^3/uL (0.0-0.2); BASO % 0.4 % (0.0-1.0); EOS # 0.4 10^3/uL (0.0-0.5); EOS % 2.6 % (0.0-3.0); HEMATOCRIT 48.4 % (42.0-52.0); HEMOGLOBIN 16.1 g/dl (13.5-17.5); LYMPH # 2.1 10^3/uL (1.5-5.0); LYMPH % 14.2 % (24.0-44.0); MEAN CORPUSCULAR HEMOGLOBIN 30.5 pg (27.0-33.0); MEAN CORPUSCULAR HGB CONC 33.3 g/dl (32.0-36.5); MEAN CORPUSCULAR VOLUME 91.7 fl (80.0-96.0); MONO % 6.4 % (2.0-8.0); NEUTROPHILS # 11.3 10^3/uL (1.5-8.5); NEUTROPHILS % 76.1 % (36.0-66.0); PLATELET COUNT, AUTOMATED 282 10^3/uL (150-450); RED BLOOD COUNT 5.28 10^6/uL (4.30-6.10); WHITE BLOOD COUNT 14.9 10^3/uL (4.0-10.0)
[2024-03-10 18:10] LABS: ALBUMIN 3.6 G/DL (3.2-5.2); ALKALINE PHOSPHATASE 78 U/L (46-116); ALT/SGPT 45 U/L (7.0-40); AST/SGOT 27 U/L (<34); BILIRUBIN,DIRECT 0.4 MG/DL (<0.4); BLOOD UREA NITROGEN 8 MG/DL (9-23); CALCIUM LEVEL 9.5 MG/DL (8.5-10.1); CARBON DIOXIDE LEVEL 32 MMOL/L (20-31); CHLORIDE LEVEL 101 MMOL/L (98-107); CREATININE FOR GFR 0.78 MG/DL (0.70-1.30); GLOMERULAR FILTRATION RATE > 60.0 (>60); GLUCOSE, FASTING 115 MG/DL (60-100); POTASSIUM SERUM 4.4 MMOL/L (3.5-5.1); SODIUM LEVEL 138 MMOL/L (136-145); TOTAL PROTEIN 6.7 G/DL (5.7-8.2)
[2024-03-10 18:27] LABS: INR 1.11; PARTIAL THROMBOPLASTIN TIME 25.2 SECONDS (24.8-34.2); PROTHROMBIN TIME 13.9 SECONDS (12.5-14.5)
[2024-03-10] MEDS: cefTRIAXone SOD 1 GM in D5W MINI-BAG PLUS 50 ML IV ONE (18:55)
[2024-03-10] MEDS ORDERED: LIDOCAINE 2% 5ML JELLY UROJET As Ordered ONE (19:03)
[2024-03-10] MEDS ORDERED: MIDAZOLAM INJ 2MG/2ML VIAL As Ordered ONE (19:42)
[2024-03-10] MEDS ORDERED: fentaNYL 100 MCG/2 ML INJECTION As Ordered ONE (19:42)
[2024-03-10] MEDS: LIDOCAINE 2% 5ML JELLY UROJET TOP ONE (19:44)
[2024-03-10] MEDS ORDERED: propofoL 200 MG/20 ML VIAL As Ordered ONE (19:53)
[2024-03-10] MEDS: ceFAZolin 2 GM/D5W 50 ML IV BAG As Ordered ONE (20:01)
[2024-03-10] MEDS ORDERED: PHENYLephrine 500MCG 5ML (100MCG/ML) SYRINGE As Ordered ONE (20:03)
[2024-03-10] MEDS ORDERED: ACETAMINOPHEN 1000MG 100ML IV BAG As Ordered ONE (20:08)
[2024-03-10] MEDS ORDERED: ONDANSETRON 4MG 2ML VIAL As Ordered ONE (20:29)
[2024-03-10] MEDS ORDERED: LR 1,000 ML IV SCH (20:40)
[2024-03-10] MEDS ORDERED: ONDANSETRON 4MG 2ML VIAL IV PRN (20:40)
[2024-03-10] MEDS: PHENYLEPHRINE HCL INJ 10 MG in D5W 100 ML IV SCH (20:40)
[2024-03-10] MEDS ORDERED: oxyCODONE 5MG TAB PO PRN (20:40)
[2024-03-10 21:14] LABS: HEMATOCRIT 35.2 % (42.0-52.0); MEAN CORPUSCULAR HEMOGLOBIN 31.4 pg (27.0-33.0); MEAN CORPUSCULAR VOLUME 95.4 fl (80.0-96.0); PLATELET COUNT, AUTOMATED 235 10^3/uL (150-450); RED BLOOD COUNT 3.69 10^6/uL (4.30-6.10); WHITE BLOOD COUNT 18.5 10^3/uL (4.0-10.0)
[2024-03-10 21:19] LABS: HEMOGLOBIN 11.6 g/dl (13.5-17.5)
[2024-03-10] MEDS ORDERED: KETOROLAC 60MG 2ML VIAL As Ordered ONE (21:21)
[2024-03-10] MEDS ORDERED: PHENYLEPHRINE HCL INJ 50 MG in D5W 495 ML IV SCH (21:45)
[2024-03-10 21:56] LABS: BLOOD UREA NITROGEN 8 MG/DL (9-23); CALCIUM LEVEL 7.8 MG/DL (8.5-10.1); CARBON DIOXIDE LEVEL 31 MMOL/L (20-31); CHLORIDE LEVEL 105 MMOL/L (98-107); CREATININE FOR GFR 0.98 MG/DL (0.70-1.30); GLOMERULAR FILTRATION RATE > 60.0 (>60); GLUCOSE, FASTING 114 MG/DL (60-100); POTASSIUM SERUM 5.3 MMOL/L (3.5-5.1); SODIUM LEVEL 140 MMOL/L (136-145)
[2024-03-10] MEDS: PHENYLEPHRINE HCL INJ 50 MG in D5W 495 ML IV SCH (22:00)
[2024-03-10] MEDS ORDERED: MOM 30ML SUSPENSION UDC PO PRN (22:10)
[2024-03-10] MEDS ORDERED: ACETAMINOPHEN TAB 650MG DOSE (2X325MG) PO PRN (22:10)
[2024-03-10] MEDS ORDERED: HOME MED LIST COMPLETE! XX SCH (22:30)
[2024-03-10] MEDS ORDERED: traMADol 50 MG TAB PO PRN (22:55)
[2024-03-10] MEDS: LR 1,000 ML IV SCH (23:36)
[2024-03-11] VITALS (43 sets, daily range): BP systolic 78–156; BP diastolic 44–77; TEMP 97.9–99; O2SAT 96–100
[2024-03-11] MEDS: MORPHINE 30 MG SA TAB PO SCH (00:25)
[2024-03-11 04:54] LABS: HEMATOCRIT 29.1 % (42.0-52.0); HEMOGLOBIN 9.7 g/dl (13.5-17.5); MEAN CORPUSCULAR HEMOGLOBIN 31.2 pg (27.0-33.0); MEAN CORPUSCULAR HGB CONC 33.3 g/dl (32.0-36.5); MEAN CORPUSCULAR VOLUME 93.6 fl (80.0-96.0); PLATELET COUNT, AUTOMATED 207 10^3/uL (150-450); RED BLOOD COUNT 3.11 10^6/uL (4.30-6.10); WHITE BLOOD COUNT 13.5 10^3/uL (4.0-10.0)
[2024-03-11 05:29] LABS: ALBUMIN 2.3 G/DL (3.2-5.2); ALKALINE PHOSPHATASE 49 U/L (46-116); ALT/SGPT 27 U/L (7.0-40); AST/SGOT 14 U/L (<34); BILIRUBIN,TOTAL 0.9 MG/DL (0.3-1.2); BLOOD UREA NITROGEN 10 MG/DL (9-23); CALCIUM LEVEL 8.2 MG/DL (8.5-10.1); CARBON DIOXIDE LEVEL 31 MMOL/L (20-31); CHLORIDE LEVEL 105 MMOL/L (98-107); CREATININE FOR GFR 0.92 MG/DL (0.70-1.30); GLOMERULAR FILTRATION RATE > 60.0 (>60); GLUCOSE, FASTING 117 MG/DL (60-100); POTASSIUM SERUM 4.6 MMOL/L (3.5-5.1); SODIUM LEVEL 139 MMOL/L (136-145); TOTAL PROTEIN 4.5 G/DL (5.7-8.2)
[2024-03-11] MEDS: cefTRIAXone SOD 1 GM in D5W MINI-BAG PLUS 50 ML IV SCH (06:26)
[2024-03-11] MEDS: DOCUSATE SODIUM 100MG CAPSULE PO SCH (08:04)
[2024-03-11] MEDS: GABAPENTIN 300 MG CAP PO SCH (08:04)
[2024-03-11] MEDS: CALCIUM CARBONATE 500 MG CHEW U/D PO PRN (09:45)
[2024-03-11] MEDS: oxyCODONE 5MG TAB PO PRN (15:38)
[2024-03-11 15:42] LABS: HEMATOCRIT 26.2 % (42.0-52.0); HEMOGLOBIN 8.7 g/dl (13.5-17.5); MEAN CORPUSCULAR HEMOGLOBIN 31.1 pg (27.0-33.0); MEAN CORPUSCULAR HGB CONC 33.2 g/dl (32.0-36.5); MEAN CORPUSCULAR VOLUME 93.6 fl (80.0-96.0); PLATELET COUNT, AUTOMATED 167 10^3/uL (150-450); WHITE BLOOD COUNT 8.4 10^3/uL (4.0-10.0)
[2024-03-11] MEDS: VITAMIN D 1,000 INTERNATIONAL UNITS TABLET PO SCH (20:14)
[2024-03-11] MEDS: ATORVASTATIN 20 MG TAB PO SCH (20:15)
[2024-03-11] MEDS: LORATADINE 10 MG TAB PO SCH (20:15)
[2024-03-11] MEDS ORDERED: NITROFURANTOIN (MACROBID) 100 MG CAP PO SCH (21:00)
[2024-03-11 22:16] LABS: HEMATOCRIT 25.7 % (42.0-52.0); HEMOGLOBIN 8.5 g/dl (13.5-17.5); MEAN CORPUSCULAR HEMOGLOBIN 31.4 pg (27.0-33.0); MEAN CORPUSCULAR HGB CONC 33.1 g/dl (32.0-36.5); MEAN CORPUSCULAR VOLUME 94.8 fl (80.0-96.0); PLATELET COUNT, AUTOMATED 178 10^3/uL (150-450); RED BLOOD COUNT 2.71 10^6/uL (4.30-6.10)
[2024-03-11] MEDS: PANTOPRAZOLE 40MG TAB (PROTONIX) PO SCH (23:01)
[2024-03-12] VITALS: BP 104/57; TEMP 97.9; O2SAT 97
[2024-03-12 04:33] VITALS: BP 106/59; TEMP 98.7; O2SAT 98
[2024-03-12 05:37] LABS: HEMATOCRIT 23.4 % (42.0-52.0); HEMOGLOBIN 7.6 g/dl (13.5-17.5); MEAN CORPUSCULAR HEMOGLOBIN 30.9 pg (27.0-33.0); MEAN CORPUSCULAR HGB CONC 32.5 g/dl (32.0-36.5); MEAN CORPUSCULAR VOLUME 95.1 fl (80.0-96.0); PLATELET COUNT, AUTOMATED 165 10^3/uL (150-450); RED BLOOD COUNT 2.46 10^6/uL (4.30-6.10); WHITE BLOOD COUNT 8.4 10^3/uL (4.0-10.0)
[2024-03-12 06:08] LABS: BLOOD UREA NITROGEN 10 MG/DL (9-23); CALCIUM LEVEL 7.8 MG/DL (8.5-10.1); CARBON DIOXIDE LEVEL 31 MMOL/L (20-31); CHLORIDE LEVEL 108 MMOL/L (98-107); CREATININE FOR GFR 0.93 MG/DL (0.70-1.30); GLOMERULAR FILTRATION RATE > 60.0 (>60); GLUCOSE, FASTING 112 MG/DL (60-100); POTASSIUM SERUM 3.7 MMOL/L (3.5-5.1); SODIUM LEVEL 141 MMOL/L (136-145)
[2024-03-12 08:00] VITALS: BP 110/65; TEMP 98; O2SAT 98
[2024-03-12 12:00] VITALS: BP 142/71; TEMP 97.9; O2SAT 98
[2024-03-12 12:00] LABS: HEMATOCRIT 26.8 % (42.0-52.0); HEMOGLOBIN 8.7 g/dl (13.5-17.5); MEAN CORPUSCULAR HEMOGLOBIN 31.2 pg (27.0-33.0); MEAN CORPUSCULAR HGB CONC 32.5 g/dl (32.0-36.5); MEAN CORPUSCULAR VOLUME 96.1 fl (80.0-96.0); PLATELET COUNT, AUTOMATED 180 10^3/uL (150-450); RED BLOOD COUNT 2.79 10^6/uL (4.30-6.10); WHITE BLOOD COUNT 8.7 10^3/uL (4.0-10.0)
== END 2024-03-12 12:54 | disposition home or self-care (01) | DRG 698 ==
LOC: M ED 15:54 → M OROP 20:13 → M ICU 22:07
PROVIDERS: ADMIT Family Medicine; ATTEND Student in an Organized Health Care Education/Training Program
PROC: 0T9 Urinary System, Drainage (ICD-10-PCS; principal; 2024-03-03)
DX: T83.83XA Hemorrhage due to genitourinary prosthetic devices, implants and grafts, initial encounter (principal); T79.4XXA Traumatic shock, initial encounter; D62 Acute posthemorrhagic anemia; E87.20 Acidosis, unspecified; G82.20 Paraplegia, unspecified; F11.20 Opioid dependence, uncomplicated; D72.829 Elevated white blood cell count, unspecified; R00.0 Tachycardia, unspecified; N31.9 Neuromuscular dysfunction of bladder, unspecified; S24.102S Unspecified injury at T2-T6 level of thoracic spinal cord, sequela; Z79.899 Other long term (current) drug therapy; Z99.3 Dependence on wheelchair; G89.29 Other chronic pain; I95.81 Postprocedural hypotension

== ENCOUNTER → 2024-03-23 | Outpatient (CLI) | payer MEDICARE, MEDICAID ==
[2024-03-23 15:41] LABS: HEMATOCRIT 33.2 % (42.0-52.0); HEMOGLOBIN 10.4 g/dl (13.5-17.5); MEAN CORPUSCULAR HEMOGLOBIN 29.5 pg (27.0-33.0); MEAN CORPUSCULAR HGB CONC 31.3 g/dl (32.0-36.5); MEAN CORPUSCULAR VOLUME 94.3 fl (80.0-96.0); PLATELET COUNT, AUTOMATED 376 10^3/uL (150-450); RED BLOOD COUNT 3.52 10^6/uL (4.30-6.10); WHITE BLOOD COUNT 7.3 10^3/uL (4.0-10.0)
== END ==
LOC: M PLALAB 12:58
PROVIDERS: ATTEND Family Medicine
DX: D62 Acute posthemorrhagic anemia (principal); R30.0 Dysuria

== ENCOUNTER → 2024-09-19 | Outpatient (CLI) | payer MEDICARE, MEDICAID ==
[~2024-09-19] MED LIST changes: +GABA-1172 PO; -GABA-282 PO
[2024-09-19 14:52] LABS: BASO # 0.1 10^3/uL (0.0-0.2); EOS # 0.5 10^3/uL (0.0-0.5); EOS % 7.7 % (0.0-3.0); HEMATOCRIT 48.2 % (42.0-52.0); HEMOGLOBIN 14.9 g/dl (13.5-17.5); LYMPH # 1.8 10^3/uL (1.5-5.0); LYMPH % 31.3 % (24.0-44.0); MEAN CORPUSCULAR HEMOGLOBIN 26.7 pg (27.0-33.0); MEAN CORPUSCULAR HGB CONC 30.9 g/dl (32.0-36.5); MEAN CORPUSCULAR VOLUME 86.4 fl (80.0-96.0); MONO # 0.5 10^3/uL (0.0-0.8); MONO % 8.4 % (2.0-8.0); NEUTROPHILS % 51.4 % (36.0-66.0); PLATELET COUNT, AUTOMATED 243 10^3/uL (150-450); RED BLOOD COUNT 5.58 10^6/uL (4.30-6.10); WHITE BLOOD COUNT 5.8 10^3/uL (4.0-10.0)
[2024-09-19 15:47] LABS: ALBUMIN 3.8 G/DL (3.2-5.2); ALKALINE PHOSPHATASE 88 U/L (46-116); ALT/SGPT 28 U/L (7.0-40); AST/SGOT 12 U/L (<34); BILIRUBIN,TOTAL 0.7 MG/DL (0.3-1.2); BLOOD UREA NITROGEN 8 MG/DL (9-23); CALCIUM LEVEL 9.5 MG/DL (8.5-10.1); CARBON DIOXIDE LEVEL 32 MMOL/L (20-31); CHLORIDE LEVEL 104 MMOL/L (98-107); CHOLESTEROL LEVEL 103 MG/DL (<200); CHOLESTEROL RISK RATIO 3.49 (<5); CREATININE FOR GFR 0.86 MG/DL (0.70-1.30); FERRITIN 22.1 NG/ML (10.5-307.3); GLOMERULAR FILTRATION RATE > 60.0 (>60); GLUCOSE, FASTING 78 MG/DL (60-100); HDL CHOLESTEROL 29.5 MG/DL (>40); IRON (FE) 98 UG/DL (65-175); LDL CHOLESTEROL 56.1 MG/DL (<100); NON-HDL-C 73.5 MG/DL; POTASSIUM SERUM 4.1 MMOL/L (3.5-5.1); SODIUM LEVEL 140 MMOL/L (136-145); TOTAL 25(OH) VITAMIN D 48.1 NG/ML (20.0-100.0); TOTAL PROTEIN 7.2 G/DL (5.7-8.2); TRIGLYCERIDES LEVEL 87 MG/DL (<150)
== END ==
LOC: M PLALAB 08:12
PROVIDERS: ATTEND Family Medicine
DX: D62 Acute posthemorrhagic anemia (principal); E78.00 Pure hypercholesterolemia, unspecified

== ENCOUNTER 2024-10-26 19:12 | Inpatient (IN) | payer MEDICARE, MEDICAID ==
[~2024-10-26] VITALS: Ht 177.8 cm; Wt 88.5 kg
[~2024-10-26 19:12] MED LIST changes: +NYST1POW3 TOP; -NYST1POW9 TOP
[2024-10-26 19:59] LABS: BASO # 0.1 10^3/uL (0.0-0.2); BASO % 0.5 % (0.0-1.0); EOS # 0.1 10^3/uL (0.0-0.5); EOS % 0.3 % (0.0-3.0); HEMATOCRIT 25.2 % (42.0-52.0); HEMOGLOBIN 7.8 g/dl (13.5-17.5); LYMPH # 3.7 10^3/uL (1.5-5.0); LYMPH % 19.5 % (24.0-44.0); MEAN CORPUSCULAR HEMOGLOBIN 27.2 pg (27.0-33.0); MEAN CORPUSCULAR VOLUME 87.8 fl (80.0-96.0); MONO # 1.3 10^3/uL (0.0-0.8); NEUTROPHILS # 13.7 10^3/uL (1.5-8.5); NEUTROPHILS % 71.9 % (36.0-66.0); PLATELET COUNT, AUTOMATED 336 10^3/uL (150-450); RED BLOOD COUNT 2.87 10^6/uL (4.30-6.10); WHITE BLOOD COUNT 19.1 10^3/uL (4.0-10.0)
[2024-10-26] MEDS: NS 2,590 ML in IV 1 EA IV ONE (20:25)
[2024-10-26] MEDS: ONDANSETRON 4MG 2ML VIAL IV ONE (20:30)
[2024-10-26 20:32] LABS: CK-MB VALUE MASS < 1.0 NG/ML (<3.6)
[2024-10-26 20:33] LABS: CPK CREATINE PHOSPHOKINASE 217 U/L (46-171); MB/CK RELATIVE INDEX 0.46 (< OR =4)
[2024-10-26 20:34] LABS: ALBUMIN 3.1 G/DL (3.2-5.2); ALKALINE PHOSPHATASE 53 U/L (40-129); ALT/SGPT 20 U/L (7.0-40); AST/SGOT 9 U/L (<34); BILIRUBIN,DIRECT 0.1 MG/DL (<0.4); BILIRUBIN,TOTAL 0.2 MG/DL (0.3-1.2); MAGNESIUM LEVEL 1.7 MG/DL (1.8-2.4); TOTAL PROTEIN 5.6 G/DL (5.7-8.2)
[2024-10-26] MEDS: ASPIRIN 325 MG TAB PO ONE (21:00)
[2024-10-26] MEDS ORDERED: ISOVUE-370 76% 100ML VIAL As Ordered ONE (21:03)
[2024-10-26 21:17] LABS: INR 1.22; PARTIAL THROMBOPLASTIN TIME 23.2 SECONDS (24.8-34.2); PROTHROMBIN TIME 15.7 SECONDS (12.5-14.5)
[2024-10-26 22:16] LABS: CK-MB VALUE MASS < 1.0 NG/ML (<3.6)
[2024-10-26 22:20] LABS: CPK CREATINE PHOSPHOKINASE 196 U/L (46-171); MB/CK RELATIVE INDEX 0.51 (< OR =4)
[2024-10-26] MEDS: MAG SULF 1GM/100ML (MAG RUN) 1 GM in IV 1 EA IV ONE (23:12)
[2024-10-27] VITALS (21 sets, daily range): BP systolic 85–133; BP diastolic 46–75; TEMP 97.4–101.8; O2SAT 98–100
[2024-10-27] MEDS: PANTOPRAZOLE 40MG VIAL IV ONE (00:15)
[2024-10-27] MEDS: SODIUM CHLORIDE 0.9% 500 ML IV ONE (01:25)
[2024-10-27] MEDS ORDERED: ACETAMINOPHEN 325 MG TAB PO PRN (01:25)
[2024-10-27] MEDS ORDERED: MOM 30ML SUSPENSION UDC PO PRN (01:25)
[2024-10-27] MEDS ORDERED: NITR50CA51 PO (02:18)
[2024-10-27] MEDS ORDERED: LORA10TA3 PO (02:18)
[2024-10-27] MEDS ORDERED: TEST200I14 IM (02:18)
[2024-10-27] MEDS ORDERED: KETO2SHA8 TOP (02:18)
[2024-10-27] MEDS ORDERED: AMOX875T PO (02:18)
[2024-10-27] MEDS: NS 1,000 ML IV SCH (02:19)
[2024-10-27] MEDS ORDERED: HOME MED LIST COMPLETE! XX SCH (02:20)
[2024-10-27] MEDS ORDERED: PANTOPRAZOLE SODIUM 40 MG in D5W 50 ML IV SCH (02:40)
[2024-10-27] MEDS: ONDANSETRON 4MG 2ML VIAL IV ONE (03:00)
[2024-10-27] MEDS ORDERED: HYDROMORPHONE HCL 0.5 MG/ 0.5 ML SYRINGE IV PRN (03:20)
[2024-10-27] MEDS ORDERED: ONDANSETRON 4MG 2ML VIAL IV PRN (03:20)
[2024-10-27] MEDS ORDERED: oxyCODONE 5MG TAB PO PRN (03:20)
[2024-10-27] MEDS ORDERED: MEPERIDINE 25 MG/ML 1ML VIAL IV PRN (03:20)
[2024-10-27] MEDS ORDERED: METOCLOPRAMIDE INJ 10MG/2ML VIAL IV PRN (03:20)
[2024-10-27] MEDS ORDERED: fentaNYL 100 MCG/2 ML INJECTION IV PRN (03:20)
[2024-10-27] MEDS ORDERED: EPINEPHrine INJ 1 MG/ML 1ML AMP As Ordered ONE (03:22)
[2024-10-27] MEDS ORDERED: fentaNYL 100 MCG/2 ML INJECTION As Ordered ONE (03:25)
[2024-10-27] MEDS ORDERED: MIDAZOLAM INJ 2MG/2ML VIAL As Ordered ONE (03:25)
[2024-10-27] MEDS ORDERED: propofoL 200 MG/20 ML VIAL As Ordered ONE (03:26)
[2024-10-27] MEDS ORDERED: ROCURONIUM BROMIDE 50MG/5ML VIAL As Ordered ONE (03:26)
[2024-10-27 03:27] LABS: HEMATOCRIT 23.5 % (42.0-52.0); HEMOGLOBIN 7.4 g/dl (13.5-17.5); MEAN CORPUSCULAR HEMOGLOBIN 26.7 pg (27.0-33.0); MEAN CORPUSCULAR HGB CONC 31.5 g/dl (32.0-36.5); MEAN CORPUSCULAR VOLUME 84.8 fl (80.0-96.0); PLATELET COUNT, AUTOMATED 256 10^3/uL (150-450); RED BLOOD COUNT 2.77 10^6/uL (4.30-6.10)
[2024-10-27] MEDS ORDERED: LIDOCAINE 2% 100MG/5ML SDV (FOR ANES.) As Ordered ONE (03:29)
[2024-10-27] MEDS ORDERED: ONDANSETRON 4MG 2ML VIAL As Ordered ONE (03:31)
[2024-10-27 03:47] LABS: ALBUMIN 2.8 G/DL (3.2-5.2); ALKALINE PHOSPHATASE 44 U/L (40-129); ALT/SGPT 19 U/L (7.0-40); AST/SGOT 14 U/L (<34); BILIRUBIN,TOTAL 0.7 MG/DL (0.3-1.2); BLOOD UREA NITROGEN 45 MG/DL (9-23); CALCIUM LEVEL 7.5 MG/DL (8.5-10.1); CARBON DIOXIDE LEVEL 23 MMOL/L (20-31); CHLORIDE LEVEL 110 MMOL/L (98-107); CREATININE FOR GFR 0.87 MG/DL (0.70-1.30); GLOMERULAR FILTRATION RATE > 60.0 (>60); GLUCOSE, FASTING 108 MG/DL (60-100); POTASSIUM SERUM 4.6 MMOL/L (3.5-5.1); SODIUM LEVEL 139 MMOL/L (136-145); TOTAL PROTEIN 5.1 G/DL (5.7-8.2)
[2024-10-27] MEDS ORDERED: SUGAMMADEX SODIUM 500 MG/5 ML VIAL (BRIDION) As Ordered ONE (04:12)
[2024-10-27] MEDS ORDERED: VASOPRESSIN INJ 20UNITS/ML 1ML VIAL As Ordered ONE (04:33)
[2024-10-27] MEDS: GABAPENTIN 300 MG CAP PO SCH (08:23)
[2024-10-27] MEDS: MORPHINE 10 MG/ML 1ML VIAL IV ONE (08:24)
[2024-10-27] MEDS ORDERED: PANTOPRAZOLE 40MG VIAL IV SCH ×2 (09:00→21:00)
[2024-10-27] MEDS ORDERED: HEPARIN 1,000UNITS/ML 10ML VIAL (FOR RADIOLOGY & DIALYSIS ONLY) IV STA (09:03)
[2024-10-27] MEDS: LR 1,000 ML IV SCH ×2 (09:19→19:31)
[2024-10-27] MEDS: MORPHINE 2 MG/ML 1ML VIAL IV ONE (09:19)
[2024-10-27] MEDS: ALBUTEROL SULFATE 2.5MG/0.5ML INH NEB SOLN INH ONE (09:19)
[2024-10-27 09:37] LABS: HEMATOCRIT 24.8 % (42.0-52.0); HEMOGLOBIN 8.3 g/dl (13.5-17.5)
[2024-10-27] MEDS: LORATADINE 10 MG TAB PO SCH (11:47)
[2024-10-27] MEDS: oxyCODONE 5MG TAB PO PRN (11:47)
[2024-10-27] MEDS: OMEPRAZOLE 20MG CAP PO SCH (11:47)
[2024-10-27] MEDS: DICLOFENAC EPOLAMINE 1.3% PATCH TOP SCH (12:46)
[2024-10-27] MEDS ORDERED: traMADol 50 MG TAB PO PRN (13:40)
[2024-10-27] MEDS: MORPHINE SULFATE TAB EXT REL 30 MG PO SCH (13:57)
[2024-10-27 15:30] LABS: HEMATOCRIT 24.8 % (42.0-52.0); HEMOGLOBIN 8.3 g/dl (13.5-17.5)
[2024-10-27] MEDS: ONDANSETRON 4MG 2ML VIAL IV PRN (15:39)
[2024-10-27 16:49] LABS: BASO % 0.2 % (0.0-1.0); HEMATOCRIT 24.4 % (42.0-52.0); HEMOGLOBIN 8.1 g/dl (13.5-17.5); LYMPH % 10.4 % (24.0-44.0); MEAN CORPUSCULAR HEMOGLOBIN 27.9 pg (27.0-33.0); MEAN CORPUSCULAR HGB CONC 33.2 g/dl (32.0-36.5); MEAN CORPUSCULAR VOLUME 84.1 fl (80.0-96.0); MONO # 1.1 10^3/uL (0.0-0.8); MONO % 5.6 % (2.0-8.0); NEUTROPHILS # 16.3 10^3/uL (1.5-8.5); NEUTROPHILS % 82.8 % (36.0-66.0); PLATELET COUNT, AUTOMATED 250 10^3/uL (150-450); WHITE BLOOD COUNT 19.6 10^3/uL (4.0-10.0)
[2024-10-27 17:17] LABS: CK-MB VALUE MASS < 1.0 NG/ML (<3.6)
[2024-10-27 17:18] LABS: CPK CREATINE PHOSPHOKINASE 238 U/L (46-171); MB/CK RELATIVE INDEX 0.42 (< OR =4)
[2024-10-27 17:20] LABS: ALBUMIN 3.2 G/DL (3.2-5.2); ALKALINE PHOSPHATASE 44 U/L (40-129); ALT/SGPT 17 U/L (7.0-40); AST/SGOT 11 U/L (<34); BILIRUBIN,TOTAL 1.1 MG/DL (0.3-1.2); BLOOD UREA NITROGEN 29 MG/DL (9-23); CALCIUM LEVEL 8.3 MG/DL (8.5-10.1); CARBON DIOXIDE LEVEL 23 MMOL/L (20-31); CHLORIDE LEVEL 114 MMOL/L (98-107); CREATININE FOR GFR 1.05 MG/DL (0.70-1.30); GLOMERULAR FILTRATION RATE > 60.0 (>60); GLUCOSE, FASTING 132 MG/DL (60-100); MAGNESIUM LEVEL 1.9 MG/DL (1.8-2.4); PHOSPHORUS LEVEL 1.4 MG/DL (2.5-4.9); POTASSIUM SERUM 4.3 MMOL/L (3.5-5.1); SODIUM LEVEL 143 MMOL/L (136-145); TOTAL PROTEIN 5.6 G/DL (5.7-8.2)
[2024-10-27] MEDS: HYDROMORPHONE HCL 0.5 MG/ 0.5 ML SYRINGE IV ONE (17:25)
[2024-10-27] MEDS: LR 1,000 ML IV ONE (17:26)
[2024-10-27] MEDS ORDERED: cefTRIAXone SOD 2 GM in DEXTROSE 5% (D5W) ADV/MINI-BAG 50 ML IV SCH (18:00)
[2024-10-27] MEDS: BISACODYL 10MG SUPP PR ONE (18:29)
[2024-10-27] MEDS: PANTOPRAZOLE 40MG VIAL IV SCH (18:30)
[2024-10-27] MEDS: PIPERACILLIN/TAZOBACTAM SOD 3.375 GM in DEXTROSE 5% (D5W) ADV/MINI-BAG 50 ML IV SCH (18:31)
[2024-10-27] MEDS: SODIUM PHOSPHATE INJ 30 MMOL in D5W 500 ML IV ONE (18:45)
[2024-10-27] MEDS: ATORVASTATIN 20 MG TAB PO SCH (19:40)
[2024-10-27] MEDS: MIRALAX *UNIT DOSE* 17GM PACKET PO SCH (19:40)
[2024-10-27] MEDS: VITAMIN D 1,000 INTERNATIONAL UNITS TABLET PO SCH (19:41)
[2024-10-27] MEDS: SENNA 8.6 MG TAB (SENOKOT) PO SCH (19:41)
[2024-10-27] MEDS: ACETAMINOPHEN *IV* 1,000 MG in IV 1 EA IV SCH (20:12)
[2024-10-27] MEDS: HYDROMORPHONE HCL 0.5 MG/ 0.5 ML SYRINGE IV PRN (20:57)
[2024-10-27] MEDS ORDERED: OMEPRAZOLE 20MG CAP PO SCH (21:00)
[2024-10-27 21:43] LABS: HEMOGLOBIN 6.1 g/dl (13.5-17.5)
[2024-10-27] MEDS ORDERED: diphenhydrAMINE 25MG CAP PO ONE (22:00)
[2024-10-27] MEDS: diphenhydrAMINE 50MG/ML VIAL IV STA (22:15)
[2024-10-27] MEDS: LR 500 ML IV ONE (23:45)
[2024-10-28] VITALS (12 sets, daily range): BP systolic 95–119; BP diastolic 50–68; TEMP 98.1–99.6; O2SAT 96–100
[2024-10-28 03:08] LABS: BASO % 0.2 % (0.0-1.0); LYMPH # 2.9 10^3/uL (1.5-5.0); LYMPH % 16.4 % (24.0-44.0); MEAN CORPUSCULAR HEMOGLOBIN 28.4 pg (27.0-33.0); MEAN CORPUSCULAR HGB CONC 32.8 g/dl (32.0-36.5); MEAN CORPUSCULAR VOLUME 86.5 fl (80.0-96.0); MONO # 1.7 10^3/uL (0.0-0.8); MONO % 9.7 % (2.0-8.0); NEUTROPHILS # 12.9 10^3/uL (1.5-8.5); NEUTROPHILS % 72.9 % (36.0-66.0); PLATELET COUNT, AUTOMATED 178 10^3/uL (150-450); RED BLOOD COUNT 2.89 10^6/uL (4.30-6.10); WHITE BLOOD COUNT 17.7 10^3/uL (4.0-10.0)
[2024-10-28 03:16] LABS: HEMOGLOBIN 8.2 g/dl (13.5-17.5)
[2024-10-28 03:38] LABS: BLOOD UREA NITROGEN 22 MG/DL (9-23); CALCIUM LEVEL 6.8 MG/DL (8.5-10.1); CARBON DIOXIDE LEVEL 24 MMOL/L (20-31); CHLORIDE LEVEL 112 MMOL/L (98-107); CREATININE FOR GFR 1.02 MG/DL (0.70-1.30); GLOMERULAR FILTRATION RATE > 60.0 (>60); GLUCOSE, FASTING 101 MG/DL (60-100); MAGNESIUM LEVEL 1.7 MG/DL (1.8-2.4); SODIUM LEVEL 141 MMOL/L (136-145)
[2024-10-28] MEDS: MAG SULF 1GM/100ML (MAG RUN) 1 GM in IV 1 EA IV ONE (04:01)
[2024-10-28 06:17] LABS: HEMATOCRIT 23.8 % (42.0-52.0); MEAN CORPUSCULAR HEMOGLOBIN 28.7 pg (27.0-33.0); MEAN CORPUSCULAR HGB CONC 33.6 g/dl (32.0-36.5); MEAN CORPUSCULAR VOLUME 85.3 fl (80.0-96.0); PLATELET COUNT, AUTOMATED 165 10^3/uL (150-450); RED BLOOD COUNT 2.79 10^6/uL (4.30-6.10); WHITE BLOOD COUNT 16.3 10^3/uL (4.0-10.0)
[2024-10-28] MEDS ORDERED: METOCLOPRAMIDE INJ 10MG/2ML VIAL IV PRN (09:40)
[2024-10-28] MEDS ORDERED: ONDANSETRON 4MG 2ML VIAL IV PRN (09:40)
[2024-10-28] MEDS ORDERED: fentaNYL 100 MCG/2 ML INJECTION IV PRN (09:40)
[2024-10-28] MEDS ORDERED: HYDROMORPHONE HCL 0.5 MG/ 0.5 ML SYRINGE IV PRN (09:40)
[2024-10-28] MEDS ORDERED: ALBUTEROL SULFATE 2.5MG/0.5ML INH NEB SOLN INH ONE (09:40)
[2024-10-28] MEDS ORDERED: oxyCODONE 5MG TAB PO PRN (09:40)
[2024-10-28] MEDS ORDERED: PHENYLephrine 500MCG 5ML (100MCG/ML) SYRINGE As Ordered ONE (10:33)
[2024-10-28] MEDS: LR 1,000 ML IV SCH (14:11)
[2024-10-28 14:19] LABS: HEMATOCRIT 24.2 % (42.0-52.0); HEMOGLOBIN 8.1 g/dl (13.5-17.5)
[2024-10-28] MEDS ORDERED: GABAPENTIN 300 MG CAP PO SCH (16:00)
[2024-10-28 20:14] LABS: HEMATOCRIT 24.9 % (42.0-52.0); HEMOGLOBIN 7.9 g/dl (13.5-17.5)
[2024-10-29] VITALS (7 sets, daily range): BP systolic 107–128; BP diastolic 56–76; TEMP 98.4–100; O2SAT 97–100
[2024-10-29 04:57] LABS: BASO # 0.1 10^3/uL (0.0-0.2); BASO % 0.6 % (0.0-1.0); EOS # 0.1 10^3/uL (0.0-0.5); EOS % 1.3 % (0.0-3.0); HEMATOCRIT 24.4 % (42.0-52.0); HEMOGLOBIN 7.9 g/dl (13.5-17.5); LYMPH # 2.7 10^3/uL (1.5-5.0); LYMPH % 27.7 % (24.0-44.0); MEAN CORPUSCULAR HEMOGLOBIN 28.3 pg (27.0-33.0); MEAN CORPUSCULAR HGB CONC 32.4 g/dl (32.0-36.5); MEAN CORPUSCULAR VOLUME 87.5 fl (80.0-96.0); MONO # 0.6 10^3/uL (0.0-0.8); MONO % 6.5 % (2.0-8.0); NEUTROPHILS # 6.2 10^3/uL (1.5-8.5); NEUTROPHILS % 63.5 % (36.0-66.0); PLATELET COUNT, AUTOMATED 185 10^3/uL (150-450); RED BLOOD COUNT 2.79 10^6/uL (4.30-6.10); WHITE BLOOD COUNT 9.7 10^3/uL (4.0-10.0)
[2024-10-29 05:23] LABS: BLOOD UREA NITROGEN 8 MG/DL (9-23); CALCIUM LEVEL 7.5 MG/DL (8.5-10.1); CARBON DIOXIDE LEVEL 25 MMOL/L (20-31); CHLORIDE LEVEL 111 MMOL/L (98-107); CREATININE FOR GFR 1.01 MG/DL (0.70-1.30); GLOMERULAR FILTRATION RATE > 60.0 (>60); GLUCOSE, FASTING 86 MG/DL (60-100); MAGNESIUM LEVEL 2.2 MG/DL (1.8-2.4); POTASSIUM SERUM 3.4 MMOL/L (3.5-5.1); SODIUM LEVEL 142 MMOL/L (136-145)
[2024-10-29] MEDS: KCL 10MEQ/100ML SWI (KRUN) 10 MEQ in IV 1 EA IV SCH (06:08)
[2024-10-29] MEDS: MORPHINE SULFATE TAB EXT REL 30 MG PO SCH (20:39)
[2024-10-29] MEDS: NITROFURANTOIN (MACROBID) 100 MG CAP PO SCH (20:40)
[2024-10-29] MEDS: BISACODYL 10MG SUPP PR PRN (21:49)
[2024-10-30 03:59] VITALS: BP 125/62; TEMP 98.5; O2SAT 98
[2024-10-30 04:55] LABS: BASO % 0.4 % (0.0-1.0); EOS # 0.6 10^3/uL (0.0-0.5); EOS % 5.4 % (0.0-3.0); HEMATOCRIT 25.9 % (42.0-52.0); HEMOGLOBIN 8.4 g/dl (13.5-17.5); LYMPH # 2.5 10^3/uL (1.5-5.0); LYMPH % 22.8 % (24.0-44.0); MEAN CORPUSCULAR HEMOGLOBIN 28.8 pg (27.0-33.0); MEAN CORPUSCULAR HGB CONC 32.4 g/dl (32.0-36.5); MEAN CORPUSCULAR VOLUME 88.7 fl (80.0-96.0); MONO # 0.6 10^3/uL (0.0-0.8); MONO % 5.9 % (2.0-8.0); NEUTROPHILS % 65.1 % (36.0-66.0); PLATELET COUNT, AUTOMATED 228 10^3/uL (150-450); RED BLOOD COUNT 2.92 10^6/uL (4.30-6.10); WHITE BLOOD COUNT 10.8 10^3/uL (4.0-10.0)
[2024-10-30 05:20] LABS: BLOOD UREA NITROGEN 8 MG/DL (9-23); CALCIUM LEVEL 8.5 MG/DL (8.5-10.1); CARBON DIOXIDE LEVEL 26 MMOL/L (20-31); CHLORIDE LEVEL 110 MMOL/L (98-107); CREATININE FOR GFR 0.86 MG/DL (0.70-1.30); GLOMERULAR FILTRATION RATE > 60.0 (>60); GLUCOSE, FASTING 147 MG/DL (60-100); POTASSIUM SERUM 3.5 MMOL/L (3.5-5.1); SODIUM LEVEL 144 MMOL/L (136-145)
[2024-10-30 08:00] VITALS: BP 129/75; TEMP 98; O2SAT 97
[2024-10-30] MEDS ORDERED: MIRA33506 PO (08:38)
[2024-10-30] MEDS ORDERED: BISA10SU PR (08:38)
[2024-10-30] MEDS ORDERED: PANT40TA29 PO (08:38)
[2024-10-30] MEDS ORDERED: LEVO1TAB40 PO (08:38)
[2024-10-30] MEDS ORDERED: SENO8.6T5 PO (08:38)
[2024-10-30] MEDS ORDERED: METR-369 PO (08:38)
[2024-10-30 09:44] VITALS: O2SAT 97
== END 2024-10-30 10:50 | disposition home or self-care (01) | DRG 378 ==
LOC: M ED 19:12 → M ED INP 10-27 01:24 → M PCU 10-27 02:38 → M ED INP 10-27 02:47 → M ICU 10-27 05:47
PROVIDERS: ADMIT Student in an Organized Health Care Education/Training Program; ATTEND Student in an Organized Health Care Education/Training Program
PROC: 30233N1 Transfusion of Nonautologous Red Blood Cells into Peripheral Vein, Percutaneous Approach (ICD-10-PCS; 2024-10-27)
PROC: 0W3P8ZZ Control Bleeding in Gastrointestinal Tract, Via Natural or Artificial Opening Endoscopic (ICD-10-PCS; principal; 2024-10-27 03:09)
PROC: 0W3P8ZZ Control Bleeding in Gastrointestinal Tract, Via Natural or Artificial Opening Endoscopic (ICD-10-PCS; 2024-10-28)
DX: K92.2 Gastrointestinal hemorrhage, unspecified (principal); D62 Acute posthemorrhagic anemia; G95.9 Disease of spinal cord, unspecified; F11.23 Opioid dependence with withdrawal; K56.7 Ileus, unspecified; G82.20 Paraplegia, unspecified; N39.0 Urinary tract infection, site not specified; R00.0 Tachycardia, unspecified; N31.9 Neuromuscular dysfunction of bladder, unspecified; E87.6 Hypokalemia; K31.9 Disease of stomach and duodenum, unspecified; D37.1 Neoplasm of uncertain behavior of stomach; G62.9 Polyneuropathy, unspecified; K59.00 Constipation, unspecified; E78.5 Hyperlipidemia, unspecified; E83.42 Hypomagnesemia; Z79.899 Other long term (current) drug therapy; K92.0 Hematemesis

== ENCOUNTER → 2024-11-14 | Outpatient (REF) | payer MEDICARE, MEDICAID ==
[~2024-11-14] MED LIST changes: +AMOX875T PO; +BISA10SU PR; +KETO2SHA8 TOP; +LEVO1TAB40 PO; +LORA10TA3 PO; +METR-369 PO; +MIRA33506 PO; +PANT40TA29 PO; +SENO8.6T5 PO; +TEST200I14 IM
[2024-11-14 15:40] LABS: APPEARANCE, URINE CLEAR (CLEAR); BACTERIA, URINE AUTO NEGATIVE (NEGATIVE); BILIRUBIN, URINE AUTO NEGATIVE (NEGATIVE); BLOOD, URINE BLOOD NEGATIVE (NEGATIVE); COLOR, URINE YELLOW (YELLOW); GLUCOSE, URINE (UA) AUTO NEGATIVE (NEGATIVE); KETONE, URINE AUTO NEGATIVE (NEGATIVE); LEUKOCYTE ESTERASE, URINE AUTO NEGATIVE (NEGATIVE); NITRITE, URINE AUTO NEGATIVE (NEGATIVE); PROTEIN, URINE AUTO NEGATIVE (NEGATIVE); RBC, URINE AUTO 1 /HPF (0-3); SPECIFIC GRAVITY URINE AUTO 1.024 (1.002-1.035); SQUAMOUS EPITHELIAL CELL UR AU 0 /HPF (0-6); UROBILINOGEN, URINE AUTO 0.2 mg/dL (0.0-2.0); WBC, URINE AUTO 2 /HPF (0-3)
== END ==
LOC: M SMT 14:57
PROVIDERS: ATTEND Physician Assistant
DX: R32 Unspecified urinary incontinence (principal)

== ENCOUNTER → 2024-11-30 | Outpatient (CLI) | payer MEDICARE, MEDICAID ==
[2024-11-30 13:05] LABS: HEMATOCRIT 30.7 % (42.0-52.0); HEMOGLOBIN 8.7 g/dl (13.5-17.5); MEAN CORPUSCULAR HEMOGLOBIN 22.8 pg (27.0-33.0); MEAN CORPUSCULAR HGB CONC 28.3 g/dl (32.0-36.5); MEAN CORPUSCULAR VOLUME 80.6 fl (80.0-96.0); PLATELET COUNT, AUTOMATED 336 10^3/uL (150-450); RED BLOOD COUNT 3.81 10^6/uL (4.30-6.10)
== END ==
LOC: M PLALAB 08:58
PROVIDERS: ATTEND Family Medicine
DX: Z13.0 Encounter for screening for diseases of the blood and blood-forming organs and certain disorders involving the immune mechanism (principal); D64.9 Anemia, unspecified

== ENCOUNTER 2025-04-03 12:51 | Day surgery (SDC) | payer MEDICARE, MEDICAID ==
[~2025-04-03] VITALS: Ht 177.8 cm; Wt 86.2 kg
[~2025-04-03 12:51] MED LIST changes: +GLYCOPYRROLATE INJ 0.2 MG/ML 2 ML VIAL As Ordered ONE; +KETO120S5 TOP; -KETO2SHA8 TOP; +LIDOCAINE 2% 100MG/5ML SDV (FOR ANES.) As Ordered ONE; +fentaNYL 100 MCG/2 ML INJECTION As Ordered ONE; +propofoL 200 MG/20 ML VIAL As Ordered ONE
[2025-04-03] MEDS ORDERED: dexmedeTOMIDine (4MCG/ML)200MCG/50ML BTL (PRECEDEX) As Ordered ONE (14:42)
[2025-04-03] MEDS ORDERED: ePHEDrine SULFATE 25 MG/5 ML(5MG/ML) SYRINGE As Ordered ONE (14:57)
[2025-04-03] MEDS ORDERED: PHENYLephrine 500MCG 5ML (100MCG/ML) SYRINGE As Ordered ONE (14:57)
[2025-04-03 15:30] VITALS: TEMP 97.1
[2025-04-03 15:49] VITALS: BP 126/66; O2SAT 100
== END 2025-04-03 15:50 | disposition home or self-care (01) ==
LOC: M OPP 12:51
PROVIDERS: ATTEND Internal Medicine Gastroenterology
DX: R19.4 Change in bowel habit (principal); K92.1 Melena; K64.9 Unspecified hemorrhoids; D12.8 Benign neoplasm of rectum; K25.1 Acute gastric ulcer with perforation; Z79.891 Long term (current) use of opiate analgesic; Z79.890 Hormone replacement therapy; S24.112S Complete lesion at T2-T6 level of thoracic spinal cord, sequela; G47.30 Sleep apnea, unspecified
CPT/HCPCS: 43235; 45385; 88305; J1596; J2371; J3010

== ENCOUNTER → 2025-04-18 | Outpatient (CLI) | payer MEDICARE, MEDICAID ==
[~2025-04-18] MED LIST changes: -GLYCOPYRROLATE INJ 0.2 MG/ML 2 ML VIAL As Ordered ONE; -LIDOCAINE 2% 100MG/5ML SDV (FOR ANES.) As Ordered ONE; -fentaNYL 100 MCG/2 ML INJECTION As Ordered ONE; -propofoL 200 MG/20 ML VIAL As Ordered ONE
[2025-04-18 10:21] LABS: HEMOGLOBIN 10.7 g/dl (13.5-17.5); MEAN CORPUSCULAR HEMOGLOBIN 20.7 pg (27.0-33.0); MEAN CORPUSCULAR HGB CONC 27.4 g/dl (32.0-36.5); MEAN CORPUSCULAR VOLUME 75.4 fl (80.0-96.0); PLATELET COUNT, AUTOMATED 307 10^3/uL (150-450); RED BLOOD COUNT 5.17 10^6/uL (4.30-6.10); WHITE BLOOD COUNT 5.9 10^3/uL (4.0-10.0)
== END ==
LOC: M PLALAB 08:28
PROVIDERS: ATTEND Family Medicine
DX: E29.1 Testicular hypofunction (principal); G89.21 Chronic pain due to trauma

== ENCOUNTER → 2025-04-18 | Outpatient (REF) | payer MEDICARE, MEDICAID ==
[2025-04-18 13:49] LABS: APPEARANCE, URINE CLEAR (CLEAR); BACTERIA, URINE AUTO NEGATIVE (NEGATIVE); BILIRUBIN, URINE AUTO NEGATIVE (NEGATIVE); BLOOD, URINE BLOOD NEGATIVE (NEGATIVE); COLOR, URINE YELLOW (YELLOW); GLUCOSE, URINE (UA) AUTO NEGATIVE (NEGATIVE); KETONE, URINE AUTO NEGATIVE (NEGATIVE); LEUKOCYTE ESTERASE, URINE AUTO NEGATIVE (NEGATIVE); NITRITE, URINE AUTO NEGATIVE (NEGATIVE); PROTEIN, URINE AUTO NEGATIVE (NEGATIVE); RBC, URINE AUTO 0 /HPF (0-3); SPECIFIC GRAVITY URINE AUTO 1.005 (1.002-1.035); SQUAMOUS EPITHELIAL CELL UR AU 0 /HPF (0-6); UROBILINOGEN, URINE AUTO 0.2 mg/dL (0.0-2.0); WBC, URINE AUTO 0 /HPF (0-3)
== END ==
LOC: M SMT 12:53
PROVIDERS: ATTEND Urology
DX: N39.0 Urinary tract infection, site not specified (principal)

== ENCOUNTER → 2025-06-25 | Outpatient (CLI) | payer MEDICARE, MEDICAID ==
[~2025-06-25] MED LIST changes: +OMEP40CA4 PO; +SENN-225 PO; -SENO8.6T5 PO
[2025-06-25 18:45] LABS: PLATELET COUNT, AUTOMATED 282 10^3/uL (150-450)
[2025-06-25 19:04] LABS: IRON (FE) 79.0 UG/DL (65-175); PERCENT SATURATION 24.7 % (19.7-50.0)
== END ==
LOC: M PLALAB 13:45
PROVIDERS: ATTEND Family Medicine
DX: D50.8 Other iron deficiency anemias (principal)

== ENCOUNTER → 2025-11-12 | Outpatient (CLI) | payer MEDICARE, MEDICAID ==
[~2025-11-12] MED LIST changes: -BACTDSTA PO; -MORP1TAB21 PO; +MORP60TA PO; +SULF-8 PO
[2025-11-12 10:57] LABS: PLATELET COUNT, AUTOMATED 284 10^3/uL (150-450)
[2025-11-12 11:01] LABS: ALT/SGPT 28 U/L (7.0-40); AST/SGOT 17 U/L (<34); CALCIUM LEVEL 9.6 MG/DL (8.5-10.1); CARBON DIOXIDE LEVEL 32 MMOL/L (20-31); CHLORIDE LEVEL 103 MMOL/L (98-107); CHOLESTEROL LEVEL 182 MG/DL (<200); CHOLESTEROL RISK RATIO 5.33 (<5); CREATININE FOR GFR 0.84 MG/DL (0.70-1.30); GLOMERULAR FILTRATION RATE > 90.0 (>60); LDL CHOLESTEROL 124.7 MG/DL (<100); NON-HDL-C 147.9 MG/DL; POTASSIUM SERUM 4.9 MMOL/L (3.5-5.1); SODIUM LEVEL 140 MMOL/L (136-145); TRIGLYCERIDES LEVEL 116 MG/DL (<150)
[2025-11-12 11:02] LABS: FREE T4 1.24 NG/DL (0.89-1.76)
== END ==
LOC: M PLALAB 08:27
DX: R53.82 Chronic fatigue, unspecified (principal); D50.9 Iron deficiency anemia, unspecified; E78.2 Mixed hyperlipidemia; R29.1 Meningismus